=== PATIENT | male | born 1960 | race Caucasian/White ===

== ENCOUNTER 2018-06-20 09:34 | Inpatient (IN) | payer OTHER, SELFPAY ==
[2018-06-15 14:00] VITALS: BMI 25.0
[2018-06-20] VITALS (21 sets, daily range): BP systolic 89–169; BP diastolic 50–113; PULSE 48–73; RESP 12–20; TEMP 35.9–36.9; O2SAT 93–100; BMI 25.0
--- NOTE | 2018-06-20 | DI.RAD.S_ITS ---
PROCEDURE: XR LUMBAR SPINE 2-3V INDICATIONS: L5-S1 TLIF TECHNIQUE: 2 views of the lumbar spine were acquired. COMPARISON: None. FINDINGS: 2 intraoperative fluoroscopy images demonstrate discectomy and posterior fusion at L4-L5 and L5-S1. Pedicular screws and fusion rods are in appropriate position. IMPRESSION: Discectomy and posterior fusion at L4-L5 and L5-S1. Dictated by: Terell Raymond M.D. on 06/20/2018 at 15:51 Approved by: Terell Raymond M.D. on 06/20/2018 at 15:52
[2018-06-20] MEDS: LACTATED RINGERS 1,000 ML 42 ML IV ×2 (10:00→14:56)
[2018-06-20] MEDS: fentaNYL 100 MCG/2 ML INJ 50 MCG IV ×4 (11:04→12:14)
--- NOTE | 2018-06-20 11:48 | PM.PREOP ---
Pre-operative Note Interval Note History & Physical reviewed/Exam performed by Physician: Yes Changes to H&P: Yes H&P completed within 30 days and has changed as indicated here:: All of his left leg symptoms have resolved. Primarily just going down the posterolateral right leg although he still has some constant numbness into the right great toe. We will plan on a completely right-sided decompression and fusion at L5-S1 with possible revision decompression of the L4-5 foramen.
[2018-06-20] MEDS: CEFAZOLIN 2 GM/100 ML FROZ.PIGGY IV ×2 (12:32→21:07)
--- NOTE | 2018-06-20 13:20 | SUR.OPER ---
Prone on spine table, head in foam head support, padded chest and pelvic supports, gel pad at knees, lower legs supported by pillows; nipples, genitalia and toes free of pressure, arms secured on foam padded arm boards at <90 degrees abduction. Tape over blanket at thigh secured to table.
[2018-06-20] MEDS: BUPIVACAINE LIPOSOME 266 MG/20 ML VIAL INJ (13:36)
[2018-06-20] MEDS: SODIUM CHLORIDE 0.9% 1,000 ML, GENTAMICIN 80 MG IRR (13:37)
[2018-06-20] MEDS: BUPIVACAINE 0.5% (PF) VIAL 30 ML INJ (13:40)
[2018-06-20] MEDS: THROMBIN (RECOMBINANT) 5,000 UNIT VIAL 5000 UNIT TOP (13:41)
--- NOTE | 2018-06-20 14:59 | PM.OP.1 ---
Operative Date/Time/Diagnoses Date of procedure: 06/20/18 Time of procedure: 14:59 Pre-op diagnosis: Lumbar disc herniation with radiculopathy Lumbar stenosis History of lumbar fusion Post-op diagnosis: same Procedure & Clinicians Procedure: L5-S1 diskectomy on the right L5-S1 TLIF (post/post innerbody fusion) with cage L4-5 posterolateral fusion Removal of yevgeniy and L5 screw on the right Placement of L5 and S1 screws Iliac crest bone graft Use of microscope Same procedure as scheduled: Yes Indications: [age] year old male with intractable pain from lumbar disc herniation. They had failed conservative management and requested operative intervention. Risks and benefits of surgery were discussed and appropriate consents were obtained. Surgeon: Alex Nagel Payroll Benefits Administrator: Dorys Rojo Anesthesia Type: General Operative Notes Findings: None Closure Type: primary Specimen(s): none sent Prosthetic devices, grafts, tissues, transplants, or devices: NuVasive Precept MAS screws Globus Rise cage Applied: catheter Estimated Blood Loss (mL): 10 Procedure in detail: The patient was brought to the operating room and intubated on the table. A time-out was performed. They were then rolled over to the well-padded Mati table in the prone position. Preoperative antibiotics were given. The back was prepped and draped in the standard sterile fashion. Using fluoroscopy, a 6 cm longitudinal incision was made to the right of the midline incorporating his previous incision. We used Bovie to come down to and split the lumbodorsal fascia and then dissected down to his old L4 and L5 screws. These were cleared off. We removed the set screws and then removed the yevgeniy. The L5 screw was removed as it felt somewhat loose. Using fluoroscopy and monitoring, we then percutaneously placed Jamshidi needles down the pedicles of L5 and S1 on the right side. We changed our overall screw trajectory and went more medial on the L5 level than his previous screw. These were changed out to guidewires and then we tapped and then placed the NuVasive MAS Presept screw shanks. We then opened up the retractors and used Bovie to clear up the posterolateral gutter as well as medially along the lamina to the spinous processes. A bur was used to decorticate the transverse processes. We also explored the posterolateral fusion at L4-5. There did not appear to be any significant bone growth. We then decorticated the transverse process of L4 as well. We brought in the microscope. Using a combination of bur and Kerrison rongeurs, a L5-S1 hemilaminotomy was performed from the right side. We cleared over past the midline and carefully depressed the dura until we were able to decompress the opposite side. We cleared out the neural foramen. We then retracted the dura medially and came to the large extruded disc herniation that was seen on the MRI. A scalpel used to perform an annulotomy and removed the large extruded fragment that had worked up above the disc level itself. This completed the diskectomy at L5-S1. This was separate and distinct from the TLIF approach as we were decompressing a large extruded disc herniation. We then began the TLIF prep. A complete facetectomy was performed on this side at L5-S1. We carefully cleaned up the remainder of the foramen until we could easily retract the exiting root as well as clearing medially below the dura and expose the disc space. We performed a near complete diskectomy using a combination of paddles, poonam, pituitaries, and curettes. We distracted the disc using a paddle and locked the retractor in an open position. We then filled the disc space with Osteocel bone graft. We then placed the globus Rise cage under fluoroscopy and then filled this in with more bone graft. The distraction on the retractor was released to compress down. This completed the posterior interbody fusion portion of the TLIF at L5-S1. We then placed the screw heads, yevgeniy, and locked down the set screws from L4 through S1. The wound was copiously irrigated. A small stab incision was made over the PSIS. We used a Jamshidi needle to aspirate several mL of bone marrow from the pelvis. This was mixed with the remaining Osteocel and combined with all of the locally harvested bone graft and placed in the posterolateral gutter for the posterior fusion of the TLIF at L5-S1. We also placed more bone in the posterolateral gutter for the revision attempt at the posterolateral fusion at L4-5. We then closed the muscle fascia. We then went to the opposite side. Again using fluoroscopy, a 3 cm incision was made and Bovie was used to come down to split the fascia. Using neural monitoring and fluoroscopy, Jamshidi needles were advanced down the pedicles of L5 and S1 on the left side. These were switched over guidewires, tapped, and screws placed. We then placed a yevgeniy and locked the set screws on this side. The wound was irrigated. The fascia was closed. Exparel was used for local pain relief. Vancomycin powder was placed in the wounds. The superficial and skin were closed. A sterile dressing was placed. The patient was then rolled over extubated and brought to recovery room without complications. Complications: none Condition: stable Disposition: PACU Plan for aftercare: Inpatient. Up with physical therapy. Do to his significant IV drug history as well as current treatment with Suboxone, I presume that he is going to have issues with pain management for first few days. When he is discharged, he will need to be discharged with enough pain medication to last until Tuesday. That is his next follow-up with his pain management doctor, who will restart him on Suboxone and his regular scheduled medications at that point.
[2018-06-20] MEDS: LORazepam 2 MG/ML SYRINGE 0.5 MG IV ×3 (15:42→16:44)
[2018-06-20] MEDS: hydrOXYzine 50 MG/ML INJ IM (16:13)
[2018-06-20] MEDS: HYDROMORPHONE PCA (6MG/30ML) 6 MG/30 ML PCA.VIAL 2.5 MG IV ×2 (16:38→22:28)
--- NOTE | 2018-06-20 17:09 | SUR.PHASEI ---
PACU Note: Patient with increased pain level 9/10. Anesthesiologist Dr. Parker medicated patient intermittently with pain medication. PROGRAMMING MANAGER Dilaudid initiated in the PACU per request of Ortho PA. Vital signs remained stable. O2 sats on 4 liters DRIVEWAY ATTENDANT WNL. Verbal handoff report given to Paulette RIVERA in PACU and report called to Nida RIVERA in acute care. Patient resting quietly.
[2018-06-20] MEDS: LACTATED RINGERS 1,000 ML 125 ML IV (18:10)
[2018-06-20] MEDS: CELECOXIB 200 MG CAPSULE 400 MG PO (19:10)
[2018-06-20] MEDS: hydrOXYzine pamoate 25 MG CAPSULE PO (19:10)
[2018-06-20] MEDS: SENNOSIDES 8.6 MG TABLET 17.2 MG PO (20:54)
[2018-06-20] MEDS: DOCUSATE 100 MG CAPSULE PO (20:54)
[2018-06-20] MEDS: GABAPENTIN 300 MG CAPSULE PO (20:54)
--- NOTE | 2018-06-20 22:15 | PC.NURSE ---
pt up from pacu at 1720, sleeping when arrived. Pacu started pt on dil card setter at 0.4/10/10 w/cont 0.5. Pt woke up couple times this evening to answer admit questions and take po pills. Was confused at first when woke up, thought he still needed to have surgery but smiled when I told him that it was done. After a couple of hours patient woke up long enough to get educated on card setter use and ate some dinner. no moaning or grimacing with rest and no movement but with any movement awake or sleeping pt grimaces and moans loudly. at that time I remind him to push his card setter button. Pt has been calm and cooperative when awake. drsg to back has been cdi.
[2018-06-21] VITALS (8 sets, daily range): BP systolic 107–140; BP diastolic 75–96; PULSE 57–114; RESP 16–18; TEMP 36.6–37.2; O2SAT 91–97
--- NOTE | 2018-06-21 00:41 | PC.NURSE ---
Addendum entered by Jostin Vicente R.N. 06/21/18 02:58: 0200: Awake, disoriented for a few moments. Drinking water without difficulty. Re-oriented to place, time, and situation. 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 Drowsy when awake, answers questions and follows commands. Remains on O2 2L/NC with continuous pulse oximetry. O2 sats are 93%. Remains on PAINTING TECHNICIAN at 0.4/10/10 and basal rate of 0.5/hr. Midline IV in place in lt upper arm with LR infusing at 125cc/hr. Pt laying supine with HOB elevated 30 degrees.
[2018-06-21] MEDS: CEFAZOLIN 2 GM/100 ML FROZ.PIGGY IV (04:05)
[2018-06-21 05:18] LABS: Hematocrit 44.4 % (41-53); Hemoglobin 14.8 g/dL (13.5-17.5)
[2018-06-21] MEDS: HYDROMORPHONE PCA (6MG/30ML) 6 MG/30 ML PCA.VIAL 2.5 MG IV (05:45)
[2018-06-21] MEDS: LACTATED RINGERS 1,000 ML 125 ML IV (05:50)
--- NOTE | 2018-06-21 08:01 | P.PN_ITS ---
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 At this point pain is manageable and he is just lying in bed but very severe across the back when he tries to move. The leg symptoms have resolved Exam Vital Signs (past 8 hours): - 06/21/18 00:00 06/21/18 06:00 Temperature 98.3 F 98.3 F Pulse Rate 57 L 63 Respiratory Rate 16 16 Blood Pressure 132/89 136/89 Pulse Oximetry 96 94 Oxygen Delivery Method Nasal Cannula Oxygen Flow Rate 2 Const Orientation: alert and oriented x3 Back/Spine/Pelvis Other: Minimal drainage on dressing. 5/5 motor both lower extremities. Intact sensation throughout both lower extremities Objective Labs Result Diagrams: 06/21/18 05:05 Labs: Laboratory Results - last 24 hr 06/21/18 05:05 Hgb 14.8 Hct 44.4 Assessment & Plan Post-op Postoperative Procedures Operation Date: 06/20/18 11:45 Actual Procedures Side Surgeon p L5-S1 Discectomy & Instru. fusion w/bone graft. Revision L4-5 Left Laminectomy Alex Nagel MD He is doing better today in pain control. 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 Add a nicotine patch. Quality VTE Deep Vein Thrombosis/Pulmonary Embolism Present on Admission: No
[2018-06-21] MEDS: DOCUSATE 100 MG CAPSULE PO ×2 (08:27→20:53)
[2018-06-21] MEDS: OXYCODONE IR 5 MG TABLET 20 MG PO ×5 (08:27→20:54)
[2018-06-21] MEDS: CELECOXIB 200 MG CAPSULE PO ×2 (08:27→20:53)
[2018-06-21] MEDS: NICOTINE 14 PATCH 14 MG TOP (08:48)
--- NOTE | 2018-06-21 10:08 | PT.IIE ---
Current Diagnoses Spinal stenosis, lumbar region with neurogenic claudication (06/20/18) Strain of muscle, fascia and tendon at neck level, initial encounter (06/20/18) Surgery Performed Operation Date: 06/20/18 11:45 Actual Procedures p L5-S1 Discectomy & Instru. fusion w/bone graft. Revision L4-5 Left Laminectomy - Alex Nagel MD Surgical History (Last Updated 06/15/18 @ 14:30 by Evette Merino, RN) History of lumbar fusion (Acute ~2014) History of repair of anterior cruciate ligament of right knee (Acute) History of vasectomy (Acute ~04/2014) Hx of tonsillectomy (Acute) S/P surgery on nasal septum (Acute) Medical History (Last Updated 06/15/18 @ 14:34 by Evette Merino RN) HTN (hypertension) (Acute) Hepatitis C (Acute ~2002) Palpitations (Acute) Substance abuse (Acute) [place] teeth removed (Acute) Physical Therapy Inpatient Evaluation/Re-Eval M1 PT/OT-IP Prior Functional Status Start: 06/21/18 11:41 Freq: NEEDED Status: Active Protocol: Document 06/21/18 10:08 AB (Rec: 06/21/18 11:55 AB [email or web address]) Medical Review Prior Functional Status Medical History Reviewed Yes Communication able to make needs known Mobility and Gait pt staed that he is independent with all mobilities and ambulation without AD Social History Household Members friend(s) Living Arrangements House Number of Floors (Floors) One Floor Number of Stairs To Enter/Railing? 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 M2 PT-IP Current Condition Start: 06/21/18 11:41 Freq: NEEDED Status: Active Protocol: Document 06/21/18 10:08 AB (Rec: 06/21/18 11:55 AB [email or web address]) Physical Therapy Current Condition Current Condition Evaluation Date 06/21/18 Treatment Diagnosis s/p L4-5 post/lat fusion, L5S1 TLIF with cage; difficulty in walking Onset Date 02/12/19 Precautions Lumbar Precautions Log Roll No Twisting Limit Bending Lifting Restriction of 10 lbs Gait Belt above Incisional Area M3 PT-IP Subjective Start: 06/21/18 11:41 Freq: NEEDED Status: Active Protocol: Document 06/21/18 10:08 AB (Rec: 06/21/18 11:55 AB [email or web address]) Subjective Physical Therapy Visit Type Type Initial Evaluation Visit Start Time 10:08 Visit Stop Time 10:55 Total Visit Minutes 47 Number of ATTENDANT SALES Visits 0 Physical Therapy Visit Comments Patient Comments pt agreeable to do PT Therapy Pain Assessment Pain When Pain Assessed At Rest Pain Present Pain Present Pain Reported Location Lower back Intensity 8 Scale Used Numeric (1 - 10) Pain Management Techniques Apply Cold Re-positioning Timing of Activity with Medications M4 PT-IP Mobility and Gait Start: 06/21/18 11:41 Freq: NEEDED Status: Active Protocol: Document 06/21/18 10:08 AB (Rec: 06/21/18 11:55 AB [email or web address]) PT-Bed Mobility Assessment Rolling Type of Rolling Log Rolling Level of Assist Standby Assistance Supine to Sit Supine to Sit Standby Assistance Bedrails Scooting Scooting to Edge of Bed Standby Assistance PT-Transfer Assessment Sit to and From Stand Sit to and from Stand Minimal Assistance 1 Person Assistance Equipment Transfer Assistive Device Gait Belt Front Wheeled Walker Orthotic/Prosthetic Devices or Brace: No Gait Assessment Gait Gait Assistance Required: Contact Guard Assist Distance (Feet) 35 Able to Maintain Weight Bearing Status Yes During Gait Assistive Devices Assistive Device Gait Belt Front Wheeled Walker Orthotic/Prosthetic Devices or Brace: No Gait Deviations General Gait Pattern Antalgic Decreased Stride Length Decreased Feet Clearance Factors Limiting Gait Function Factors Limiting Gait Function Decreased Activity Tolerance Decreased Sensation Decreased Strength Limited Range of Motion Pain Poor Balance Comments Gait Comments pt ambulated in room using FWW ~ 35 ft SBA to CGA. pt agreed to sit up on chair afterwards. positioned on chair. ice pack provided. call light and table placed within reach. PT-Balance Assessment Sitting Balance and Reactions Static Sitting Balance Ability Good Dynamic Sitting Balance Ability Good Standing Balance and Reactions Static Standing Balance Ability Fair Dynamic Standing Balance Ability Fair Device Used FWW M5 PT-IP Objective Assessments Start: 06/21/18 11:41 Freq: NEEDED Status: Active Protocol: Document 06/21/18 10:08 AB (Rec: 06/21/18 11:55 AB [email or web address]) Orientation Orientation/Cognition Level of Alertness Alert Orientation Name Age Birthday Month Date Year Day of Week Place Situation Gross Range of Motion Lower Extremity ROM Assessment Within Functional Limits Strength Lower Extremity Strength Assessment Bilaterally Impaired Comments Strength Comments RLE: 3+/5 LLE: 4-/5 Coordination Assessment Gross Coordination Gross Coordination WNL Sensation Assessment Sensation Gross Sensation Right LE Impaired Sensation Description Numbness Comments Sensation Comments c/o numbness on R 1st and 2nd toes. Muscle Tone Muscle Tone WNL Yes M6 PT-IP Treatment Start: 06/21/18 11:41 Freq: NEEDED Status: Active Protocol: Document 06/21/18 10:08 AB (Rec: 06/21/18 11:55 AB [email or web address]) Physical Therapy Treatment Education Education Provided Precautions Weight Bearing Status Post-Op Packet Safety M7 PT-IP Assessment and Plan Start: 06/21/18 11:41 Freq: NEEDED Status: Active Protocol: Document 06/21/18 10:08 AB (Rec: 06/21/18 11:55 AB [email or web address]) PT Summary Assessment and Plan Potential Rehabilitation Potential Good Status of Condition at Evaluation Evolving Summary Impairments Pain ROM Strength Balance Coordination Sensation Tone Cognition Bed Mobility Transfers Gait Activity Tolerance Assessment Summary pt requiring CGA to min A with mobility and plans to go home with his roommate to assist him. pt will likely improve during hospital stay. stair climbing training needs to be completed prior d/c and if able to safely complete, may go home when medically stable. Goals Bed Mobility Goal Independent Transfer Goal Standby Assistance Front Wheeled Walker Gait Goal Standby Assistance Front Wheel Walker Gait Distance 150 Other Goals up/down 4 steps with R rails ascending + 2 steps withour rails using SPC/FWW SBA Days to Meet Goals 5 Frequency of Treatment Frequency Of Treatment Twice a Day Treatment Plan Physical Therapy Treatment Plan Bed Mobility Training Transfer Training Gait Training Therapeutic Exercise Balance Retraining Post Op Education Discharge Planning Hot or Cold Pack Neuromuscular Re-ed Coordination Retraining Manual Therapy Other Recommendations and Next Treatment ambulation, stair climbing if Focus appropriate Recommendations To Nursing Amount of Assist Needed 1 Person Assist Discharge Recommendations PT Discharge Recommendations Home with Assistance
--- NOTE | 2018-06-21 11:48 | CM.DANOTE ---
Patient is a 58 year old male who was admitted on 06/20/18 for Spinal Surgery. Pt has L&I for insurance and his PCP is Dr. Marino Tracey. EMR was reviewed. Per Ortho PA, pt tolerated procedure well and having some pain control issues due to pt's hx of opioid/heroin abuse. Per RN, pt alert and oriented and pleasant and cooperative with care. Per PT, pt ambulated in the room and sitting upright in bedside chair. SW met bedside with pt and explained role and updated white board and pt confirmed that he lives at home in [facility] with his roommate/ex- who plans to be available for assist for at least the first 2 weeks after discharge. Pt denies any DPOA and declined pwk at this time. Pt states that he is typically Independent at baseline with ADL's and has been able to hold a couple jobs over the past few years but only for 6-9 months at a time due to his back injury. Pt states that about 5 years ago he had his first L4-5 surgery and was able to d/c home with outpt PT but this is when his opioid addiction began. Pt was able to quit using pain medication for a while but then unfortunately made the terrible, terrible decision to use heroin in place of the pain medication and has struggled with heroin abuse for a couple years but 3 weeks ago he established care with his MD who prescribes his Suboxone which he feels has been a peter factor to his 3 weeks of sobriety from heroin. Pt also sees a SW in the clinic for ongoing support and is not currently connected with any other treatment facilities or supports. Pt seems quite motivated with his recovery, sobriety, and healing from surgery and states he has the supports with his ex- and local friends and declines further resources at this time. Pt states he has a plan for minimal prescription of pain medication with the Orthopedic office and then a scheduled appointment with his Suboxone Clinic for early this next week for ongoing management. Pt denies any hx of HH or SNF and does not anticipate any needs at d/c and preference is home with his roommate support at discharge. Pt has a plan of either paying an Uber for transport home unless the roads are clear of snow and his roommate can pick him up. Plan: DCP to follow closely after further PT/OT and recommendations towards determining if pt is safe for d/c home with roommate/ex- assist for at least 2 weeks and any further identified discharge planning needs. KP Gallardo Discharge Planning/Care Management CM Discharge Assessment Start: 06/21/18 11:45 Freq: Status: Active Protocol: Document 06/21/18 11:45 BF (Rec: 06/21/18 11:47 BF [id number]) Discharge Planning Assessment Assigned Painter And Decorator Apprentice PABLO Ovalles DPOA/Assigned Designee Name none Advance Directives? No: Declines further information History Provided By Patient Medical Record Has Patient been admitted in last 30 No days? Prior Living Arrangements House Household Members friend(s) other Comment Lives at home in [facility] with his roommate/ex- Type of transporation used prior to Drives own vehicle admit Independent with ADL's Yes Is patient alert and oriented? Yes Caregiver for Another No Community Services used prior to Physical Therapy admission: Comment Waiting for further PT eval and recommendations towards likely home Barriers to Discharge No Discharge Plan Home Community Services Physical Therapy Transportation Arrangement Pt plans to likely pay for an Uber to shrimp picker his ex- to come to the hospital to pick him up for transport back home unless the roads are clear of snow. Additional Comment Waiting for further PT/OT Whiteboard Updated in Patient Room with Yes name and ext. # of Painter And Decorator Apprentice Review Status In Process Please Provide Date Initial DC 06/21/18 Assessment Was Performed Next Review Type Continued Stay Review Pre-Anesthesia Assessment Start: 06/15/18 14:00 Freq: Status: Complete Protocol: Document 06/15/18 14:00 CAB (Rec: 06/15/18 14:38 CAB [id number]) Pre-Anesthesia Assessment PAC Comment Hx of substance abuse, currently followed by avionics systems integration specialist, on suboxone therapy. Patient Also Known As (AKA) Ray or Solomon Patient Information Reviewed Via Phone Assessment Assessment Completed With Patient Primary Care Provider Marino Tracey Seen Specialist in Last 12 Months Yes Specialist Seen Orthopedist Other Comment Addiction physician - Dr. Jameel romero/[facility] in [place] Primary Language Irish Straight Pin Making Machine Operator Required No Height 185.42 cm Weight 86.183 kg Body Mass Index (BMI) 25.0 Hearing Ability Normal Visual Assist None Magnifying Glass Dentition Type Teeth, Natural Present Teeth, Missing Barriers to Learning None Other Aids No Hx Anesthesia Reactions No: Sleep apnea, does not use CPAP Hx Family Anesthesia Reaction No Hx Malignant Hyperthermia No Hx Blood Transfusions No Anesthesia Review Requested No Buttonhole Facer No alcohol intake current alcohol intake frequency a few times a month Smoking Status Current every day smoker Tobacco type cigarettes Smoking packs per day 1 Substance Use Type marijuana Comment Advised not to smoke 24 hours prior to surgery Pain Present Pain Reported Musculoskeletal Symptoms Abnormal Gait Back Pain Difficulty Walking Joint Pain History of Falling (Recent or History of No ) Patient is completely paralyzed or No completely immobile Mental Status Oriented to own ability Is patient on oxygen? No Does patient have BRAVO/SOB No Hx Sleep Apnea Yes CPAP/BIPAP use prescribed not used Currently Taking a Beta Tristen No Can You Climb a Flight of Stairs Without Yes SOB Hx Chest Pain No Hx SOB No Hx Syncope or Dizziness No Anti-Coagulant Therapy No Has a Chief Console Operator No Cardiac Testing No Hx Pacemaker/ICD No Pacemaker Rep Required? No Cardiac Clearance Received Not Applicable Diet Type At Home Regular dysphagia No Urinary Catheter Present No Hx Urinary Self Catheterization No Diabetes No Hx Drug Resistant Organism No Presence of External or Internal Medical No Devices Have you traveled outside the [facility] in the last 30 days? Marital Status Lives With friend(s) other Prior Living Arrangements House Number of Floors (Floors) One Floor Number of Stairs To Enter/Railing? 6 steps, railing present Support System Friend(s) Does the Patient Have Assistance After Yes Surgery Patient Discharge Plan Description Return Home Comment Lives w/ex-, who will assist with care at discarge Feels Safe in Current Environment Yes Been Physically Hurt or Threatened By a No Person in Current Environment Do you have thoughts of harming yourself None or others? Are you currently considering suicide? No Do you have a plan to hurt yourself or No Plan others? Do You Have Any Spiritual Beliefs That No May Affect Your HC Choices? Do You Have Any Cultural Practices That No May Affect Your HC Choices? Spiritual Referral None Who Can We Speak to About Patient's Care Family, friends Identifying Code for Release of Patient Declines to issue Information Health Care Proxy/Next of Kin Eliazar Sanchez (brother) Health Care Proxy Emergency Contact Name Eliazar Bradford (brother) Emergency Contact Advance Directives? No: Declines further information Power of Chemical Equipment Repairer No PAC Instructions Do not shave/clip surgical site Durable medical equipment Medications to take/avoid Nasal antibiotic No ETOH/petroleum product on skin DOS NPO Post-op transportation Pre-surgical wash Sturdy shoes/comfortable clothes Do not bring valuables and remove jewelry
--- NOTE | 2018-06-21 11:50 | OT.IP.EVAL ---
Current Diagnoses Spinal stenosis, lumbar region with neurogenic claudication (06/20/18) Strain of muscle, fascia and tendon at neck level, initial encounter (06/20/18) Surgery Performed Operation Date: 06/20/18 11:45 Actual Procedures p L5-S1 Discectomy & Instru. fusion w/bone graft. Revision L4-5 Left Laminectomy - Alex Nagel MD Past Medical History (Last Updated 06/15/18 @ 14:34 by Evette Merino, RN) HTN (hypertension) (Acute) Hepatitis C (Acute ~2002) Palpitations (Acute) Substance abuse (Acute) [place] teeth removed (Acute) Surgical History (Last Updated 06/15/18 @ 14:30 by Evette Merino RN) History of lumbar fusion (Acute ~2014) History of repair of anterior cruciate ligament of right knee (Acute) History of vasectomy (Acute ~04/2014) Hx of tonsillectomy (Acute) S/P surgery on nasal septum (Acute) Occupational Therapy Inpatient Evaluation/Re-Eval M1 PT/OT-IP Prior Functional Status Start: 06/21/18 11:41 Freq: NEEDED Status: Active Protocol: Document 06/21/18 11:50 PJM (Rec: 06/22/18 08:13 PJM [id number]) Medical Review Prior Functional Status Medical History Reviewed Yes Communication WNL Mobility and Gait Pt stated that he is independent with all mobilities and ambulation without AD. Activities of Daily Living and IADL's Pt states he was indep with all self care, He shares IADLs with his roommate. 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 He states he stopped working 04/21/19 due to low back pain. He plans to take 3 months of work. Social History Household Members friend(s) other Living Arrangements House Number of Floors (Floors) One Floor Number of Stairs To Enter/Railing? 6 stairs to enter with 2 railings Home Environment Tub/Shower Home Equipment Raised Toilet Seat Without Armrests Shower Seat without Backrest Hand Held Shower Additional Social History Comment Pt lives with roommate who works from home and can assist PRN. Pt has hx of recent IV drug use. Currently has STUNT PERSON in place plus oral pain meds being given. M2 OT-IP Current Condition Start: 06/22/18 07:57 Freq: Status: Active Protocol: Document 06/21/18 11:50 PJM (Rec: 06/22/18 08:13 PJ [id number]) Occupational Therapy Current Condition Current Condition Evaluation Date 06/21/18 Treatment Diagnosis decr'd self care,mobility s/sp L5-S1 diskectomy/fusion w/ revision L4-5 lami Diagnosis Onset Date 06/20/18 Post Operative Precautions Lumbar Precautions Log Roll No Twisting Limit Bending Lifting Restriction of 10 lbs Gait Belt above Incisional Area M3 OT- IP Subjective and Pain Start: 06/22/18 07:57 Freq: Status: Active Protocol: Document 06/21/18 11:50 PJM (Rec: 06/22/18 08:13 PJ [id number]) OT- Subjective Occupational Therapy Visit Type Type Initial Evaluation Visit Start Time 11:30 Visit Stop Time 11:50 Total Visit Minutes 20 Occupational Therapy Visit Comments Patient Comments I know I am sleepy from the pain meds. Sorry about that. Patient/Caregiver Goals to have less back pain, be able to return to work in 3 months OT Pain Assessment Pain Present Pain Present Pain Reported Location Right Upper Leg Intensity 8 Scale Used Numeric (1 - 10) Description Aching Acute Pain Behaviors Facial Grimacing Guarding Management Techniques Distraction Timing of Activity with Medications M4 OT- IP ADL's Start: 06/22/18 07:57 Freq: Status: Active Protocol: Document 06/21/18 11:50 PJM (Rec: 06/22/18 08:13 PJ [id number]) OT [id number] General Evaluation Self-Feeding Ability Independent OT ADL-Grooming General Evaluation Grooming Ability Standby Assistance Comments OT Grooming Comments after set up in chair OT ADL-Oral Care Comments Oral Care Comments to be assessed OT ADL-Dressing General Eval Upper Body Dressing Ability Standby Assistance Lower Body Dressing Ability Maximum Assistance Comments OT Dressing Comments Pt too drowsy to begin education re: self care skills today OT ADL-Toileting Comments OT Toileting Comments to be assessed OT ADL-Bathing Comments OT Bathing Comments to be assessed, recommend clamp on tub grab bar to assist with stepping over edge of tub or suction grab bar. Pt lives in rental house and cannot have permanent grab bars placed. M5 OT- IP IADL's Start: 06/22/18 07:57 Freq: Status: Active Protocol: Document 06/21/18 11:50 PJM (Rec: 06/22/18 08:13 PJM [id number]) OT-Instrumental Activities of Daily Living Deficits IADL Deficits Identified Deficits Home Safety Awareness Awareness of Need for Assistance at Home Good Awareness Ability to Problem Solve Emergency Able to Problem Solve Situations Medication Management Medication Management Comments Pt has hx of recent IV drug use per chart notes. Money Management Money Management No Deficits Identified Meal Preparation Meal Preparation Caregiver Provides Assist Meal Preparation Comments Roommate to assist until pt able Velvet Steamer Velvet Steamer Caregiver Provides Assist Velvet Steamer Comments Roommate to assist until pt able Driving Driving Caregiver Provides Assist Driving Comments Roommate to assist until pt able M6 OT- IP Functional Cognition Start: 06/22/18 07:57 Freq: Status: Active Protocol: Document 06/21/18 11:50 PJM (Rec: 06/22/18 08:13 PJ [id number]) Cognitive Factors Limiting Selfcare Function Cognitive Ability Level of Alertness Drowsy Patient Orientation Name Place Situation Attention Span Ability Unable to Sustain Attention Ability to Follow Commands Able to Follow One Step Commands Cognitive Comments Cognitive Assessment Comments Pt quite drowsy from pain meds but oriented and asking appropriate questions. OT- Vision and Hearing OT- Hearing Assessment OT- Hearing Assessment WFL OT- Vision Assessment Visual Acuity WFL M7 OT- IP Mobility and Balance Start: 06/22/18 07:57 Freq: Status: Active Protocol: Document 06/21/18 11:50 PJM (Rec: 06/22/18 08:13 PJM [id number]) OT-Transfer Assessment Comments Mobility Comments Pt seen up in chair this session. See P.T. notes. OT- Gait Assessment Comments Gait Ability Comments See P.T. notes OT- Balance Assessment Comments Other Balance Tests/Deviations/Treatment see P.T. notes : M8 OT- IP Objective Assessments Start: 06/22/18 07:57 Freq: Status: Active Protocol: Document 06/21/18 11:50 PJM (Rec: 06/22/18 08:13 PJM [id number]) OT Gross Range of Motion Upper Extremity Range of Motion Assessment Within Functional Limits OT Strength Upper Extremity Strength Assessment Within Functional Limits OT- Coordination Assessment Comments Coordination Comments BUE WNL OT-Muscle Tone Assessment Muscle Tone WNL Yes OT Sensation Assessment Comments Summary Comments Pt denies deficits in BUE's Edema Edema Absent M9 OT- IP Assessment and Plan Start: 06/22/18 07:57 Freq: Status: Active Protocol: Document 06/21/18 11:50 PJM (Rec: 06/22/18 08:13 PJM [id number]) OT Summary Assessment and Plan Potential Rehabilitation Potential Good Analytic Complexity at Evaluation Low Summary OT Impairments Pain Functional Mobility Grooming Dressing Toileting Bathing Toilet Transfers Shower Transfers Assessment Summary Low complexity OT assessment completed with emphasis on adapted ADL skills within lumbar spine precautions. Pt too drowsy to retain any education today but motivated to increase independence and return home. Pt currently has performance deficits in all functional mobility/transfers, standing grooming, lower body dressing, bathing and toileting. Pt will benefit from 1-2 additional OT visits here to address the goals below. Anticipate pt will be able to d/c home with roommate , who works from home, when medically stable and clears P.T. Goals Grooming Goal Independent Dressing Goal Independent Long Handled Shoe Horn Banking Analyst Sock Aid Toileting Goal Independent Bathing Goal Standby Assistance Toilet Transfer Goal Independent Shower Transfer Goal Standby Assistance Tub/Shower Combination Shower Chair Patient/Caregiver Education Goal Demonstrate Post-Op Precautions Demonstrate Energy Conservation and Pacing Caregiver Independent Assisting Patient Days to Meet Goals 2 Frequency of Treatment Frequency Of Treatment Once a Day Treatment Plan OT Treatment Plan ADL Training Functional Mobility Patient/Family Education Discharge Planning Discharge Recommendations OT Discharge Recommendations Home with Assistance Home Equipment Needs grab bar by tub
--- NOTE | 2018-06-21 13:54 | PT.IPTN ---
Current Diagnoses Spinal stenosis, lumbar region with neurogenic claudication (06/20/18) Strain of muscle, fascia and tendon at neck level, initial encounter (06/20/18) Surgery Performed Operation Date: 06/20/18 11:45 Actual Procedures p L5-S1 Discectomy & Instru. fusion w/bone graft. Revision L4-5 Left Laminectomy - Alex Nagel MD Physical Therapy Treatment Note M2 PT-IP Current Condition Start: 06/21/18 11:41 Freq: NEEDED Status: Active Protocol: Document 06/21/18 10:08 AB (Rec: 06/21/18 11:55 AB [email or web address]) Physical Therapy Current Condition Current Condition Evaluation Date 06/21/18 Treatment Diagnosis s/p L4-5 post/lat fusion, L5S1 TLIF with cage; difficulty in walking Onset Date 06/20/18 Precautions Lumbar Precautions Log Roll No Twisting Limit Bending Lifting Restriction of 10 lbs Gait Belt above Incisional Area M3 PT-IP Subjective Start: 06/21/18 11:41 Freq: NEEDED Status: Active Protocol: Document 06/21/18 13:54 AB (Rec: 06/21/18 14:39 AB [email or web address]) Subjective Physical Therapy Visit Type Type Treatment Note Visit Start Time 13:54 Visit Stop Time 14:18 Total Visit Minutes 24 Number of GLAZE SPRAYER Visits 0 Physical Therapy Visit Comments Patient Comments pt agreeable to do PT Therapy Pain Assessment Pain When Pain Assessed At Rest Pain Present Pain Present Pain Reported Location Lower back Scale Used not too bad at rest per pt but increases with mobility Pain Management Techniques Re-positioning Timing of Activity with Medications M4 PT-IP Mobility and Gait Start: 06/21/18 11:41 Freq: NEEDED Status: Active Protocol: Document 06/21/18 13:54 AB (Rec: 06/21/18 14:39 AB [id number]) PT-Bed Mobility Assessment Rolling Type of Rolling Log Rolling Level of Assist Standby Assistance Sit to Supine Sit to Supine Standby Assistance PT-Transfer Assessment Sit to and From Stand Sit to and from Stand Contact Guard Assistance Equipment Transfer Assistive Device Gait Belt Front Wheeled Walker Orthotic/Prosthetic Devices or Brace: No Gait Assessment Gait Gait Assistance Required: Contact Guard Assist Minimum Assistance Distance (Feet) 35 Able to Maintain Weight Bearing Status Yes During Gait Assistive Devices Assistive Device Gait Belt Front Wheeled Walker Orthotic/Prosthetic Devices or Brace: No Gait Deviations General Gait Pattern Antalgic Factors Limiting Gait Function Factors Limiting Gait Function Decreased Activity Tolerance Decreased Sensation Decreased Strength Limited Range of Motion Pain Poor Balance Poor Safety Awareness Comments Gait Comments pt is drowsy this afternoon and requires constant cues to keep his eyes open. pt completed ambulation ~ 35 ft using FWW CGA to min A. pt more unsteady this afternoon. M5 PT-IP Objective Assessments Start: 06/21/18 11:41 Freq: NEEDED Status: Active Protocol: Document 06/21/18 10:08 AB (Rec: 06/21/18 11:55 AB [email or web address]) Orientation Orientation/Cognition Level of Alertness Alert Orientation Name Age Birthday Month Date Year Day of Week Place Situation Gross Range of Motion Lower Extremity ROM Assessment Within Functional Limits Strength Lower Extremity Strength Assessment Bilaterally Impaired Comments Strength Comments RLE: 3+/5 LLE: 4-/5 Coordination Assessment Gross Coordination Gross Coordination WNL Sensation Assessment Sensation Gross Sensation Right LE Impaired Sensation Description Numbness Comments Sensation Comments c/o numbness on R 1st and 2nd toes. Muscle Tone Muscle Tone WNL Yes M6 PT-IP Treatment Start: 06/21/18 11:41 Freq: NEEDED Status: Active Protocol: Document 06/21/18 13:54 AB (Rec: 06/21/18 14:39 AB [email or web address]) Physical Therapy Treatment Education Education Provided Precautions Safety M7 PT-IP Assessment and Plan Start: 06/21/18 11:41 Freq: NEEDED Status: Active Protocol: Document 06/21/18 13:54 AB (Rec: 06/21/18 14:39 AB [email or web address]) PT Summary Assessment and Plan Potential Rehabilitation Potential Fair Summary Impairments Pain ROM Strength Balance Coordination Sensation Tone Cognition Bed Mobility Transfers Gait Activity Tolerance Progress Towards Goals Slow Progress due to Pain Assessment Summary pt requiring one person assist with mobility. informed pt regarding caregiver training and set up for tomorrow at ~ 900 am. if caregiver will be able to safely assist pt and pt also able to complete stair climbing safely, pt may go home with assistance. Goals Bed Mobility Goal Independent Transfer Goal Standby Assistance Front Wheeled Walker Gait Goal Standby Assistance Front Wheel Walker Gait Distance 150 Other Goals up/down 4 steps with R rails ascending + 2 steps withour rails using SPC/FWW SBA Days to Meet Goals 5 Frequency of Treatment Frequency Of Treatment Twice a Day Treatment Plan Physical Therapy Treatment Plan Bed Mobility Training Transfer Training Gait Training Therapeutic Exercise Balance Retraining Post Op Education Discharge Planning Hot or Cold Pack Neuromuscular Re-ed Coordination Retraining Manual Therapy Other Recommendations and Next Treatment ambulation, stair climbing if Focus appropriate Recommendations To Nursing Amount of Assist Needed 1 Person Assist Discharge Recommendations PT Discharge Recommendations Home with Assistance
[2018-06-21] MEDS: HYDROMORPHONE PCA (6MG/30ML) 6 MG/30 ML PCA.VIAL 1 MG IV ×2 (14:29→21:15)
[2018-06-21] MEDS: SENNOSIDES 8.6 MG TABLET 17.2 MG PO (20:53)
[2018-06-21] MEDS: GABAPENTIN 300 MG CAPSULE PO (20:53)
--- NOTE | 2018-06-21 22:20 | PC.NURSE ---
pt alert and oriented X3. pain controlled with oxycodone Q3hr and DIRECTOR SHIP pt reported being comfortable and slept after; pt consistently rated pain 8/10, re-positioned patient for comfort; pt asked for snacks and juice throughout the shift.
--- NOTE | 2018-06-21 22:29 | PC.NURSE ---
Pt A&OX3, 93%RA. LS:clear. no n/v. pain rate 12/16, pain controlled w/20 mg oxycodone and ATHLETICS DIRECTOR. repositioned pt for comfort. at this pt is sleeping and comfortable. call light in reach. bed alarm active. pt urinate 325cc. call light in reach. bed alarm active.
[2018-06-22] VITALS: BP 120/75; PULSE 88; RESP 16; TEMP 36.7; O2SAT 92
[2018-06-22] MEDS: OXYCODONE IR 5 MG TABLET 20 MG PO ×5 (03:09→19:20)
[2018-06-22 04:00] VITALS: BP 115/80; PULSE 69; RESP 18; TEMP 36.8; O2SAT 93
--- NOTE | 2018-06-22 05:15 | PC.NURSE ---
Head Of Partner Development Note: 0010: Awake, watching TV, resting in bed. Vital signs stable. Midline IV in place in lt upper arm with NS infusing at 21cc/hr for FELT COVERER. FELT COVERER in line, with Dilaudid set at 0.3/10/8 and basal rate of 0.2mg/hr. Nicotine patch in place on lt shoulder. Pt remains on O2 1.5L/NC.
[2018-06-22] MEDS: HYDROMORPHONE PCA (6MG/30ML) 6 MG/30 ML PCA.VIAL 1 MG IV (05:46)
[2018-06-22 07:29] VITALS: BP 124/84; PULSE 64; RESP 18; TEMP 36.5; O2SAT 94
--- NOTE | 2018-06-22 08:14 | P.PN_ITS ---
Subjective Date Patient Seen: 06/22/18 Time Patient Seen: 08:12 Interval history: His pain levels are slowly improving. No leg symptoms. Exam Vital Signs (past 8 hours): - 06/22/18 04:00 06/22/18 07:29 Temperature 98.2 F 97.7 F Pulse Rate 69 64 Respiratory Rate 18 18 Blood Pressure 115/80 124/84 Pulse Oximetry 93 94 Fraction of Inspired Oxygen 21 Oxygen Delivery Method Nasal Cannula Oxygen Flow Rate 1.5 Const Orientation: alert and oriented x3 Back/Spine/Pelvis Other: Minimal drainage. 5/5 motor both lower extremities Objective Labs Result Diagrams: 06/21/18 05:05 Assessment & Plan Post-op Postoperative Procedures Operation Date: 06/20/18 11:45 Actual Procedures Side Surgeon p L5-S1 Discectomy & Instru. fusion w/bone graft. Revision L4-5 Left Laminectomy Alex Nagel MD He is making progress. Will continue working on pain control and stop the basal rate on the JALOUSIE INSTALLER and try to transition to orals. He still can have the JALOUSIE INSTALLER for breakthrough pain and stop this tomorrow. Possibly discharge home tomorrow. On discharge, he will need a knife oral pain medication to get him through to Tuesday when he goes back to his pain management doctor and will restart his Suboxone. Quality VTE Deep Vein Thrombosis/Pulmonary Embolism Present on Admission: No
[2018-06-22] MEDS: DOCUSATE 100 MG CAPSULE PO ×2 (09:07→20:53)
[2018-06-22] MEDS: NICOTINE 14 PATCH 14 MG TOP (09:07)
[2018-06-22] MEDS: CELECOXIB 200 MG CAPSULE PO ×2 (09:07→20:53)
--- NOTE | 2018-06-22 10:08 | OT.IP.TRT ---
Current Diagnoses Spinal stenosis, lumbar region with neurogenic claudication (06/20/18) Strain of muscle, fascia and tendon at neck level, initial encounter (06/20/18) Surgery Performed Operation Date: 06/20/18 11:45 Actual Procedures p L5-S1 Discectomy & Instru. fusion w/bone graft. Revision L4-5 Left Laminectomy - Alex Nagel MD Occupational Therapy Treatment Note M2 OT-IP Current Condition Start: 06/22/18 07:57 Freq: Status: Active Protocol: Document 06/21/18 11:50 PJM (Rec: 06/22/18 08:13 PJM [id number]) Occupational Therapy Current Condition Current Condition Evaluation Date 06/21/18 Treatment Diagnosis decr'd self care,mobility s/sp L5-S1 diskectomy/fusion w/ revision L4-5 lami Diagnosis Onset Date 06/20/18 Post Operative Precautions Lumbar Precautions Log Roll No Twisting Limit Bending Lifting Restriction of 10 lbs Gait Belt above Incisional Area M3 OT- IP Subjective and Pain Start: 06/22/18 07:57 Freq: Status: Active Protocol: Document 06/22/18 10:08 PJM (Rec: 06/22/18 12:48 PJM [email or web address]) OT- Subjective Occupational Therapy Visit Type Type Treatment Note Visit Start Time 09:39 Visit Stop Time 10:08 Total Visit Minutes 29 Notes Pt's roommate, Maisha, here for education. Occupational Therapy Visit Comments Patient Comments I feel much better today, I was so sleepy yesterday. Patient/Caregiver Goals to go home tomorrow;return to work in 3 months OT Pain Assessment Pain When Pain Assessed After Treatment Pain Present Pain Present Pain Reported Location Right Upper Leg Intensity 7 Scale Used Numeric (1 - 10) Description Aching Acute Pain Behaviors Guarding Management Techniques Distraction Re-positioning Timing of Activity with Medications M4 OT- IP ADL's Start: 06/22/18 07:57 Freq: Status: Active Protocol: Document 06/22/18 10:08 PJM (Rec: 06/22/18 12:48 PJM [email or web address]) OT ADL-Grooming Comments OT Grooming Comments provided education re: body mechanics and pt verbalizes understanding; he plans to shave in shower OT ADL-Oral Care Comments Oral Care Comments provided education re: body mechanics and pt verbalizes understanding; pt declines to go to sink at this time OT ADL-Dressing General Eval Upper Body Dressing Ability Standby Assistance Lower Body Dressing Ability Maximum Assistance Areas Needing Assistance Pull-Over Shirt Underpants/Brief Pants/Shorts Socks Assistive Devices Dressing Assistive Devices Printing Plate Setter Comments OT Dressing Comments Pt prefers to have roommate assist with donning and doffing B socks and with donning and doffing undershorts and sweatpants. He declines to try this task with unit manager rn. He declines sock aid. Roommate will assist with these tasks at home. Pt plans to wear slip on slippers and declines long shoe horn. Pt requesting unit manager rn for use at home to get objects off floor. OT ADL-Toileting General Evaluation Toileting Ability Independent Comments OT Toileting Comments Pt stood at toielt with P.T. earlier and declines up to bathroom at this time. Provided education re: body mechanics for twin care after bowel movement and pt verbalizes understanding. OT ADL-Bathing Devices Bathing Equipment Hand Held Shower Sprayer Shower Chair without Arms Comments OT Bathing Comments Pt would like to shower tomorrow prior to d/c, long bath sponge provided at pt request. Pt has small tub seat . Recommended clamp on tub rail but pt declines. Roommate M6 OT- IP Functional Cognition Start: 06/22/18 07:57 Freq: Status: Active Protocol: Document 06/22/18 10:08 PJM (Rec: 06/22/18 12:48 [facility] [email or web address]) Cognitive Factors Limiting Selfcare Function Cognitive Ability Level of Alertness Alert Patient Orientation Name Age Birthday Month Date Year Day of Week Place Situation Attention Span Ability Capable of Focused Attention Capable of Sustained Attention Ability to Follow Commands Able to Follow One Step Commands Memory Description No Deficits Noted Safety Awareness Decreased Ability to Apply Precautions Underestimates Need for Assistance Cognitive Comments Cognitive Assessment Comments Pt presents with decreased insight into current lumbar spine precautions and potential safety issues (e.g standing up to don and doff pants rather than sitting) and needs min to mod verbal cues to apply them during self care tasks. He needs encouragement to try safer strategies. He declines most adaptive equipt. Emphasized to pt and roommate that he needs to follow lumbar precautions until MD allows increased activity. He verbalizes understanding. M7 OT- IP Mobility and Balance Start: 06/22/18 07:57 Freq: Status: Active Protocol: Document 06/22/18 10:08 PJM (Rec: 06/22/18 12:48 PJ [email or web address]) OT-Transfer Assessment Sit to and From Stand Sit to and from Stand Contact Guard Assistance Technique Transfer Destination Chair Devices Transfer Assistive Devices Large Based Quad Cane Comments Mobility Comments Sit to stand requires significant effort from low chair. Pt has his recliner up on 4 blocks at home and has RTS on toilet. OT- Gait Assessment Comments Gait Ability Comments see P.T. report OT- Balance Assessment Sitting Balance and Reactions Static Sitting Balance Ability Good Dynamic Sitting Balance Ability Good Standing Balance and Reactions Static Standing Balance Ability Fair Comments Other Balance Tests/Deviations/Treatment during lower body dressing : M9 OT- IP Assessment and Plan Start: 06/22/18 07:57 Freq: Status: Active Protocol: Document 06/22/18 10:08 PJM (Rec: 06/22/18 12:48 [facility] [email or web address]) OT Summary Assessment and Plan Potential Rehabilitation Potential Good Summary Progress Towards Goals Progressing Toward Goals Assessment Summary Pt presents with better pain control and much more alert today with increased functional mobility noted. He has decreased insight into current lumbar spine precautions and potential safety issues (e.g standing up to don and doff pants rather than sitting) and needs min to mod verbal cues to apply precautions and safe strategies during self care tasks. He declines most adaptive equipt. Roommate works from home and agreeable to assist pt PRN with dressing and bathing. Emphasized to pt and roommate that he needs to follow lumbar precautions until MD allows increased activity. He verbalizes understanding. Pt did agree to shower tomorrow prior to d/c. Goals Grooming Goal Independent Dressing Goal Moderate Assistance Toileting Goal Independent Bathing Goal Standby Assistance Toilet Transfer Goal Independent Shower Transfer Goal Standby Assistance Tub/Shower Combination Shower Chair Patient/Caregiver Education Goal Demonstrate Post-Op Precautions Demonstrate Energy Conservation and Pacing Caregiver Independent Assisting Patient Days to Meet Goals 1 Frequency of Treatment Frequency Of Treatment Once a Day Treatment Plan OT Treatment Plan ADL Training Functional Mobility Patient/Family Education Discharge Planning Discharge Recommendations OT Discharge Recommendations Home with Assistance Home Equipment Needs grab bar by tub
--- NOTE | 2018-06-22 10:29 | PT.IPTN ---
Current Diagnoses Spinal stenosis, lumbar region with neurogenic claudication (06/20/18) Strain of muscle, fascia and tendon at neck level, initial encounter (06/20/18) Surgery Performed Operation Date: 06/20/18 11:45 Actual Procedures p L5-S1 Discectomy & Instru. fusion w/bone graft. Revision L4-5 Left Laminectomy - Alex Nagel MD Physical Therapy Treatment Note M2 PT-IP Current Condition Start: 06/21/18 11:41 Freq: NEEDED Status: Active Protocol: Document 06/21/18 10:08 AB (Rec: 06/21/18 11:55 AB [email or web address]) Physical Therapy Current Condition Current Condition Evaluation Date 06/21/18 Treatment Diagnosis s/p L4-5 post/lat fusion, L5S1 TLIF with cage; difficulty in walking Onset Date 06/20/18 Precautions Lumbar Precautions Log Roll No Twisting Limit Bending Lifting Restriction of 10 lbs Gait Belt above Incisional Area M3 PT-IP Subjective Start: 06/21/18 11:41 Freq: NEEDED Status: Active Protocol: Document 06/22/18 10:21 SA (Rec: 06/22/18 10:29 SA [email or web address]) Subjective Physical Therapy Visit Type Type Treatment Note Visit Start Time 09:05 Visit Stop Time 09:37 Total Visit Minutes 32 Number of TOOL GRINDER OPERATOR EXTERNAL Visits 1 Physical Therapy Visit Comments Patient Comments Pt awake with friend/caregiver Maisha present. Agreeable to PT. Therapy Pain Assessment Pain When Pain Assessed During Mobility Pain Present Pain Present Pain Reported Location Lower back Intensity 7 Scale Used Numeric (1 - 10) Pain Behaviors Calling Out Facial Grimacing Pain Management Techniques Modification of Treatment Re-positioning Timing of Activity with Medications M4 PT-IP Mobility and Gait Start: 06/21/18 11:41 Freq: NEEDED Status: Active Protocol: Document 06/22/18 10:21 SA (Rec: 06/22/18 10:29 SA [email or web address]) PT-Bed Mobility Assessment Rolling Type of Rolling Log Rolling Roll to Left Level of Assist Standby Assistance Supine to Sit Supine to Sit Standby Assistance Sit to Supine Sit to Supine Standby Assistance Scooting Scooting to Edge of Bed Standby Assistance PT-Transfer Assessment Sit to and From Stand Sit to and from Stand Contact Guard Assistance Equipment Transfer Assistive Device Gait Belt Front Wheeled Walker Orthotic/Prosthetic Devices or Brace: No Transfers Transfer Destination Bed Chair Wheelchair Transfer Technique Stand Step Pivot Transfer Ability Level of Assist Contact Guard Assistance Comments Mobility Comments Pt very pain focused and presents with significant guarding during mobility. SBA with bed mobility and CGA with transfers and FWW. VCs for upright posture and spinal precautions. Gait Assessment Gait Gait Assistance Required: Contact Guard Assist Distance (Feet) 100 Able to Maintain Weight Bearing Status Yes During Gait Assistive Devices Assistive Device Gait Belt Front Wheeled Walker Orthotic/Prosthetic Devices or Brace: No Gait Deviations General Gait Pattern Antalgic Decreased Stride Length Factors Limiting Gait Function Factors Limiting Gait Function Decreased Activity Tolerance Decreased Sensation Decreased Strength Limited Range of Motion Pain Poor Balance Poor Safety Awareness Comments Gait Comments Pt more alert this AM. ADjusted FWW for better fit, CGA with ambulation and VCs for decreasing UE WBing and increased step length. Stair Climbing Assessment Evaluation Level of Assist On Stairs Contact Guard Assistance Devices Stair Climbing Assistive Devices Left Railing Right Railing Technique/Endurance Stair Climbing Direction Ascend and Descend Stair Climbing Technique Step to Step Number of Steps Climbed 3 Query Text: Stair Climbing Set # Repetitions (reps) 1 Comments Stair Climbing Comments PT WBs heavily through UEs on B rails with step to gait pattern leads up with LLE and down with RLE. CGA and caregiver training completed with Maisha who feels comfortable managing pt on stairs in/out of home. PT-Balance Assessment Comments Other Balance Tests/Deviations/Treatment Pt maintained balance well : with standing urination at toilet. M5 PT-IP Objective Assessments Start: 06/21/18 11:41 Freq: NEEDED Status: Active Protocol: Document 06/21/18 10:08 AB (Rec: 06/21/18 11:55 AB [email or web address]) Orientation Orientation/Cognition Level of Alertness Alert Orientation Name Age Birthday Month Date Year Day of Week Place Situation Gross Range of Motion Lower Extremity ROM Assessment Within Functional Limits Strength Lower Extremity Strength Assessment Bilaterally Impaired Comments Strength Comments RLE: 3+/5 LLE: 4-/5 Coordination Assessment Gross Coordination Gross Coordination WNL Sensation Assessment Sensation Gross Sensation Right LE Impaired Sensation Description Numbness Comments Sensation Comments c/o numbness on R 1st and 2nd toes. Muscle Tone Muscle Tone WNL Yes M6 PT-IP Treatment Start: 06/21/18 11:41 Freq: NEEDED Status: Active Protocol: Document 06/22/18 10:21 SA (Rec: 06/22/18 10:29 [email or web address]) Physical Therapy Treatment Exercises Exercises Ankle Pumps Gluteal Sets Education Education Provided Precautions Post-Op Packet Safety Other Treatments Other Treatment Performed Caregiver training with Maisha for mobility in home, stairs and equipment needs. M7 PT-IP Assessment and Plan Start: 06/21/18 11:41 Freq: NEEDED Status: Active Protocol: Document 06/22/18 10:21 (Rec: 06/22/18 10:29 [email or web address]) PT Summary Assessment and Plan Goals Bed Mobility Goal Independent Transfer Goal Standby Assistance Front Wheeled Walker Gait Goal Standby Assistance Front Wheel Walker Gait Distance 150 Other Goals up/down 4 steps with R rails ascending + 2 steps withour rails using SPC/FWW SBA Frequency of Treatment Frequency Of Treatment Twice a Day Recommendations To Nursing Amount of Assist Needed 1 Person Assist Discharge Recommendations PT Discharge Recommendations Home with Assistance
[2018-06-22 11:55] VITALS: BP 124/86; PULSE 77; RESP 18; TEMP 36.6; O2SAT 95
--- NOTE | 2018-06-22 13:36 | PC.NURSE ---
Pt off the HOSPITAL RECEIVING CLERK pump per Pt request at 0900 this AM. Taking in PO pain meds w/good relief of back/surgical pain.
[2018-06-22] MEDS: hydrOXYzine pamoate 25 MG CAPSULE PO (15:42)
[2018-06-22 16:15] VITALS: BP 125/89; PULSE 66; RESP 18; TEMP 36.7; O2SAT 92
--- NOTE | 2018-06-22 16:15 | PT.IPTN ---
Current Diagnoses Spinal stenosis, lumbar region with neurogenic claudication (06/20/18) Strain of muscle, fascia and tendon at neck level, initial encounter (06/20/18) Surgery Performed Operation Date: 06/20/18 11:45 Actual Procedures p L5-S1 Discectomy & Instru. fusion w/bone graft. Revision L4-5 Left Laminectomy - Alex Nagel MD Physical Therapy Treatment Note M2 PT-IP Current Condition Start: 06/21/18 11:41 Freq: NEEDED Status: Active Protocol: Document 06/21/18 10:08 AB (Rec: 06/21/18 11:55 AB [email or web address]) Physical Therapy Current Condition Current Condition Evaluation Date 06/21/18 Treatment Diagnosis s/p L4-5 post/lat fusion, L5S1 TLIF with cage; difficulty in walking Onset Date 06/20/18 Precautions Lumbar Precautions Log Roll No Twisting Limit Bending Lifting Restriction of 10 lbs Gait Belt above Incisional Area M3 PT-IP Subjective Start: 06/21/18 11:41 Freq: NEEDED Status: Active Protocol: Document 06/22/18 16:03 SA (Rec: 06/22/18 16:15 SA [id number]) Subjective Physical Therapy Visit Type Type Treatment Note Visit Start Time 14:30 Visit Stop Time 14:50 Number of PRODUCTION CREW SUPERVISOR Visits 2 Physical Therapy Visit Comments Patient Comments Pt agreeable to PT this afternoon. Patient Goals To go home with friend/ caregiver. Therapy Pain Assessment Pain When Pain Assessed During Mobility Pain Present Pain Present Pain Reported Location Lower back Intensity 6 Scale Used Numeric (1 - 10) Pain Behaviors Calling Out Facial Grimacing Pain Management Techniques Modification of Treatment Re-positioning Timing of Activity with Medications M4 PT-IP Mobility and Gait Start: 06/21/18 11:41 Freq: NEEDED Status: Active Protocol: Document 06/22/18 16:03 SA (Rec: 06/22/18 16:15 SA [id number]) PT-Bed Mobility Assessment Rolling Type of Rolling Log Rolling Roll to Left Level of Assist Standby Assistance Supine to Sit Supine to Sit Standby Assistance Sit to Supine Sit to Supine Standby Assistance Scooting Scooting to Edge of Bed Standby Assistance Scooting Up and Down in Bed Standby Assistance PT-Transfer Assessment Sit to and From Stand Sit to and from Stand Contact Guard Assistance Equipment Transfer Assistive Device Gait Belt Front Wheeled Walker Orthotic/Prosthetic Devices or Brace: No Transfers Transfer Destination Bed Chair Transfer Technique Stand Step Pivot Transfer Ability Level of Assist Contact Guard Assistance Comments Mobility Comments Pt with slow guarded, movements but SBA for mobility tasks, uses FWW safely, remembers spinal precautions. Gait Assessment Gait Gait Assistance Required: Contact Guard Assist Distance (Feet) 250 Able to Maintain Weight Bearing Status Yes During Gait Assistive Devices Assistive Device Gait Belt Front Wheeled Walker Orthotic/Prosthetic Devices or Brace: No Gait Deviations General Gait Pattern Antalgic Decreased Stride Length Factors Limiting Gait Function Factors Limiting Gait Function Decreased Activity Tolerance Decreased Sensation Decreased Strength Limited Range of Motion Pain Poor Balance Poor Safety Awareness Comments Gait Comments Improving gait speed and distance, pt WBs heavily through UEs and is able to partially correct with cues. Increased pain with posterior lean so pt tends to forward flex through trunk. PT-Balance Assessment Comments Other Balance Tests/Deviations/Treatment Pt manages FWW and tight turns : well in room, moves segmentally to avoid twisting of spine. M5 PT-IP Objective Assessments Start: 06/21/18 11:41 Freq: NEEDED Status: Active Protocol: Document 06/21/18 10:08 AB (Rec: 06/21/18 11:55 AB [email or web address]) Orientation Orientation/Cognition Level of Alertness Alert Orientation Name Age Birthday Month Date Year Day of Week Place Situation Gross Range of Motion Lower Extremity ROM Assessment Within Functional Limits Strength Lower Extremity Strength Assessment Bilaterally Impaired Comments Strength Comments RLE: 3+/5 LLE: 4-/5 Coordination Assessment Gross Coordination Gross Coordination WNL Sensation Assessment Sensation Gross Sensation Right LE Impaired Sensation Description Numbness Comments Sensation Comments c/o numbness on R 1st and 2nd toes. Muscle Tone Muscle Tone WNL Yes M6 PT-IP Treatment Start: 06/21/18 11:41 Freq: NEEDED Status: Active Protocol: Document 06/22/18 16:03 SA (Rec: 06/22/18 16:15 SA [id number]) Physical Therapy Treatment Exercises Exercises Ankle Pumps Gluteal Sets Education Education Provided Precautions Post-Op Packet Safety M7 PT-IP Assessment and Plan Start: 06/21/18 11:41 Freq: NEEDED Status: Active Protocol: Document 06/22/18 16:03 SA (Rec: 06/22/18 16:15 SA [id number]) PT Summary Assessment and Plan Frequency of Treatment Frequency Of Treatment Twice a Day Recommendations To Nursing Amount of Assist Needed 1 Person Assist Discharge Recommendations PT Discharge Recommendations Home with Assistance
[2018-06-22 19:55] VITALS: BP 136/97; PULSE 83; RESP 18; TEMP 37; O2SAT 92
[2018-06-22] MEDS: GABAPENTIN 300 MG CAPSULE PO (20:54)
[2018-06-22] MEDS: SENNOSIDES 8.6 MG TABLET 17.2 MG PO (20:54)
--- NOTE | 2018-06-22 22:03 | CM.MNRNOTE ---
Shift summary: (pain management) Patient receiving Oxycodone for pain during this shift. Patient said I thought my dose of oxycodone was due at 15:30 however primary nurse Yesenia said his next dose due at 16:00. The patient stated I am having the same pain I had before surgery, I thought my pain would improve after surgery but it has not. Primary nurse Yesenia reviewed patient's MAR and noted that patient could receive Vistaril 25mg PO before next Oxycodone dose could be given to help with patients break through pain. Patient said YES I will try Vistaril now. During 21:00 medication administration this student nurse assessed this patients pain and the patient reported their pain of 8/10 is in his lower back and right quad. Student nurse and primary nurse Yesenia asked the patient if he would like to take another Vistaril. Patient stated the last Vistaril I got did not help my pain and NO I do not want another Vistaril because it did not work. This student nurse noticed a change in patient's attitude compared to his attitude from 06/21/18 when the patient was more inviting and open to this student nurses care. Today, 06/22/18, this student nurse found patient to be less inviting with this student nurses interactions. Safety: bed is low and locked, call light within reach
[2018-06-23 00:15] VITALS: BP 140/93; PULSE 71; RESP 16; TEMP 36.8; O2SAT 90
[2018-06-23] MEDS: OXYCODONE IR 5 MG TABLET 20 MG PO (00:35)
[2018-06-23 05:49] VITALS: BP 133/99; PULSE 63; RESP 16; TEMP 36.2; O2SAT 96
[2018-06-23] MEDS: OXYCODONE IR 10 MG TABLET 20 MG PO (08:02)
[2018-06-23 08:15] VITALS: BP 144/102; PULSE 61; RESP 18; TEMP 36.6; O2SAT 93
[2018-06-23] MEDS: CELECOXIB 200 MG CAPSULE PO (09:29)
[2018-06-23] MEDS: DOCUSATE 100 MG CAPSULE PO (09:29)
--- NOTE | 2018-06-23 10:12 | PT.IPTN ---
Current Diagnoses Spinal stenosis, lumbar region with neurogenic claudication (06/20/18) Strain of muscle, fascia and tendon at neck level, initial encounter (06/20/18) Surgery Performed Operation Date: 06/20/18 11:45 Actual Procedures p L5-S1 Discectomy & Instru. fusion w/bone graft. Revision L4-5 Left Laminectomy - Alex Nagel MD Physical Therapy Treatment Note M2 PT-IP Current Condition Start: 06/21/18 11:41 Freq: NEEDED Status: Active Protocol: Document 06/21/18 10:08 AB (Rec: 06/21/18 11:55 AB [email or web address]) Physical Therapy Current Condition Current Condition Evaluation Date 06/21/18 Treatment Diagnosis s/p L4-5 post/lat fusion, L5S1 TLIF with cage; difficulty in walking Onset Date 06/20/18 Precautions Lumbar Precautions Log Roll No Twisting Limit Bending Lifting Restriction of 10 lbs Gait Belt above Incisional Area M3 PT-IP Subjective Start: 06/21/18 11:41 Freq: NEEDED Status: Active Protocol: Document 06/23/18 10:03 SA (Rec: 06/23/18 10:12 SA [id number]) Subjective Physical Therapy Visit Type Type Treatment Note Visit Start Time 09:29 Visit Stop Time 09:53 Total Visit Minutes 24 Number of STAPLE CUTTER Visits 3 Physical Therapy Visit Comments Patient Comments Pt in bed, agreeable to PT this AM. States his R low back /leg pain is localized to R buttock. Patient Goals To go home with friend/ caregiver. Therapy Pain Assessment Pain When Pain Assessed During Mobility Pain Present Pain Present Pain Reported Location Lower back Intensity 6 Scale Used Numeric (1 - 10) Pain Behaviors Calling Out Facial Grimacing Pain Management Techniques Re-positioning Timing of Activity with Medications M4 PT-IP Mobility and Gait Start: 06/21/18 11:41 Freq: NEEDED Status: Active Protocol: Document 06/23/18 10:03 SA (Rec: 06/23/18 10:12 SA [id number]) PT-Bed Mobility Assessment Rolling Type of Rolling Log Rolling Roll to Left Level of Assist Standby Assistance Supine to Sit Supine to Sit Standby Assistance Sit to Supine Sit to Supine Standby Assistance Scooting Scooting to Edge of Bed Standby Assistance Scooting Up and Down in Bed Standby Assistance PT-Transfer Assessment Sit to and From Stand Sit to and from Stand Standby Assistance Equipment Transfer Assistive Device Gait Belt Front Wheeled Walker Orthotic/Prosthetic Devices or Brace: No Transfers Transfer Destination Bed Wheelchair Transfer Technique Stand Step Pivot Transfer Ability Level of Assist Standby Assistance Comments Mobility Comments Pt able to log roll OOB with safe technique and no VCs. Stand pivot txs with FWW and SBA, pt aware of precautions. Gait Assessment Gait Gait Assistance Required: Contact Guard Assist Distance (Feet) 225 Able to Maintain Weight Bearing Status Yes During Gait Assistive Devices Assistive Device Gait Belt Front Wheeled Walker Orthotic/Prosthetic Devices or Brace: No Gait Deviations General Gait Pattern Antalgic Decreased Stride Length Factors Limiting Gait Function Factors Limiting Gait Function Decreased Activity Tolerance Decreased Sensation Decreased Strength Limited Range of Motion Pain Poor Balance Poor Safety Awareness Comments Gait Comments Pt slowly decreasing WBing through UEs with gait and able to correct posture partially without symptoms. Stair Climbing Assessment Evaluation Level of Assist On Stairs Contact Guard Assistance Devices Stair Climbing Assistive Devices Left Railing Right Railing Technique/Endurance Stair Climbing Direction Ascend and Descend Stair Climbing Technique Step to Step Number of Steps Climbed 3 Query Text: Stair Climbing Set # Repetitions (reps) 2 Comments Stair Climbing Comments Decreasing reliance on B rails but pt still leans on rails at times, improved tolerance and management of stairs today . M5 PT-IP Objective Assessments Start: 06/21/18 11:41 Freq: NEEDED Status: Active Protocol: Document 06/21/18 10:08 AB (Rec: 06/21/18 11:55 AB [email or web address]) Orientation Orientation/Cognition Level of Alertness Alert Orientation Name Age Birthday Month Date Year Day of Week Place Situation Gross Range of Motion Lower Extremity ROM Assessment Within Functional Limits Strength Lower Extremity Strength Assessment Bilaterally Impaired Comments Strength Comments RLE: 3+/5 LLE: 4-/5 Coordination Assessment Gross Coordination Gross Coordination WNL Sensation Assessment Sensation Gross Sensation Right LE Impaired Sensation Description Numbness Comments Sensation Comments c/o numbness on R 1st and 2nd toes. Muscle Tone Muscle Tone WNL Yes M6 PT-IP Treatment Start: 06/21/18 11:41 Freq: NEEDED Status: Active Protocol: Document 06/23/18 10:03 SA (Rec: 06/23/18 10:12 SA [id number]) Physical Therapy Treatment Exercises Exercises Ankle Pumps Gluteal Sets Education Education Provided Precautions Post-Op Packet Safety M7 PT-IP Assessment and Plan Start: 06/21/18 11:41 Freq: NEEDED Status: Active Protocol: Document 06/23/18 10:03 SA (Rec: 06/23/18 10:12 SA [id number]) PT Summary Assessment and Plan Frequency of Treatment Frequency Of Treatment Twice a Day Recommendations To Nursing Amount of Assist Needed 1 Person Assist Discharge Recommendations PT Discharge Recommendations Home with Assistance Equipment Needed for Home Before Pt has FWW, elevated toilet Discharge seat and shower chair.
--- NOTE | 2018-06-23 10:34 | PM.DS.1 ---
History of Present Illness Date Patient Seen: 06/23/18 Time Patient Seen: 10:35 Chief complaint: [id number] L5-S1 & L4-5 Narrative: Hospital day 4, postop day 3 following L4-5 posterior fusion and L5-S1 TLIF with cage and posterior screws by Dr. Nagel. Patient remained stable postoperatively. Has advanced with physical therapy. PT feels that patient is stable for discharge home. Patient desired to go home today. He does have an appointment with his pain clinic on the morning of 06/27/2018. He needs enough of his oxycodone to last until that appointment. Discharge Providers Date of admission: 06/20/18 09:34 Primary care physician: Marino Tracey MD Consults: 06/20/18 17:33 Consult to Occupational Therapy Evaluate & Treat Comment: Physician Instructions: Evaluate and treat Consult to Physical Therapy Evaluate & Treat Comment: Physician Instructions: Evaluate and Treat Discharge provider: Fadi Schmidt PA-C Discharge Date: 06/23/18 Summary Discharge Diagnosis: Status post L4-5 posterior fusion and L5-S1 TLIF, cage and posterior instrumentation Hospital Course: Patient brought to hospital on 06/20/2018 for above noted surgery. He remained stable postoperatively. Mainly had a pain control issue. He advanced well with physical therapy. Ready for discharge home on postop day 3. Status at Discharge Cognitive/behavioral status at discharge: Alert oriented no acute distress. Functional status at discharge: independent ambulation Overall status at discharge: patient is progressing back to baseline Time Spent with Patient Less than 30 minutes Exam Vital Signs (past 8 hours): - 06/23/18 05:49 06/23/18 08:15 Temperature 97.2 F L 97.9 F Pulse Rate 63 61 Respiratory Rate 16 18 Blood Pressure 133/99 H 144/102 H Pulse Oximetry 96 93 Fraction of Inspired Oxygen 21 Oxygen Delivery Method Nasal Cannula Oxygen Flow Rate 2 Narrative Exam Narrative: Back. CovRsite dressing to lumbar area is dry without drainage or inflammation. Legs. No calf pain or swelling. Pulses symmetrical. Good sensation to touch to lower legs. Objective Labs Result Diagrams: 06/21/18 05:05 Discharge Plan Discharge Plan Patient Disposition: Home Discharge Med Rec/Prescriptions Prescriptions: New celecoxib [Celebrex] 200 mg Capsule 200 mg PO BID Qty: 10 RF: 0 oxycodone 10 mg Tablet 20 mg PO Q3HR PRN (Reason: Pain, Severe (7-10)) Qty: 40 RF: 0 Continued buprenorphine-naloxone [Suboxone] 8-2 mg Film 3 film BUCCAL SEEINSTR RF: 0 Follow up/Referrals: Marino Tracey MD [Primary Care Provider] - Provider Discharge Instructions Diet: Diet as Tolerated Activity: Ambulate as tolerated. Avoid excessive bending or twisting of lumbar spine. No lifting or carrying more than 5-10 lb. Other treatments: Patient will be seen at his Pain Clinic on 06/27/2018 and will be transition to Suboxone. Skin/Wound/Dressing Care Report to your healthcare provider any signs of infection, such as:: chills, fever, night sweats, increased pain, unusual drainage and unusual redness Discharge Data Primary Care Provider: Marino Tracey Attending Provider: Alex Nagel Admit Date/Time: 06/20/18 09:34 Quality VTE Deep Vein Thrombosis/Pulmonary Embolism Present on Admission: No
--- NOTE | 2018-06-23 10:38 | P.DS_ITS ---
History of Present Illness Date Patient Seen: 06/23/18 Time Patient Seen: 10:35 Chief complaint: [id number] L5-S1 & L4-5 Narrative: Hospital day 4, postop day 3 following L4-5 posterior fusion and L5- S1 TLIF with cage and posterior screws by Dr. Nagel. Patient remained stable postoperatively. Has advanced with physical therapy. PT feels that patient is stable for discharge home. Patient desired to go home today. He does have an appointment with his pain clinic on the morning of 06/27/2018. He needs enough of his oxycodone to last until that appointment. Discharge Providers Date of admission: 06/20/18 09:34 Primary care physician: Mairno Tracey MD Consults: 06/20/18 17:33 Consult to Occupational Therapy Evaluate & Treat Comment: Physician Instructions: Evaluate and treat Consult to Physical Therapy Evaluate & Treat Comment: Physician Instructions: Evaluate and Treat Discharge provider: Fadi Schmidt PA-C Discharge Date: 06/23/18 Summary Discharge Diagnosis: Status post L4-5 posterior fusion and L5-S1 TLIF, cage and posterior instrumentation Hospital Course: Patient brought to hospital on 06/20/2018 for above noted surgery. He remained stable postoperatively. Mainly had a pain control issue. He advanced well with physical therapy. Ready for discharge home on postop day 3. Status at Discharge Cognitive/behavioral status at discharge: Alert oriented no acute distress. Functional status at discharge: independent ambulation Overall status at discharge: patient is progressing back to baseline Time Spent with Patient Less than 30 minutes Exam Vital Signs (past 8 hours): - 06/23/18 05:49 06/23/18 08:15 Temperature 97.2 F L 97.9 F Pulse Rate 63 61 Respiratory Rate 16 18 Blood Pressure 133/99 H 144/102 H Pulse Oximetry 96 93 Fraction of Inspired Oxygen 21 Oxygen Delivery Method Nasal Cannula Oxygen Flow Rate 2 Narrative Exam Narrative: Back. CovRsite dressing to lumbar area is dry without drainage or inflammation. Legs. No calf pain or swelling. Pulses symmetrical. Good sensation to touch to lower legs. Objective Labs Result Diagrams: 06/21/18 05:05 Discharge Plan Discharge Plan Patient Disposition: Home Discharge Med Rec/Prescriptions Prescriptions: New celecoxib [Celebrex] 200 mg Capsule 200 mg PO BID Qty: 10 RF: 0 oxycodone 10 mg Tablet 20 mg PO Q3HR PRN (Reason: Pain, Severe (7-10)) Qty: 40 RF: 0 Continued buprenorphine-naloxone [Suboxone] 8-2 mg Film 3 film BUCCAL SEEINSTR RF: 0 Follow up/Referrals: Marino Tracey MD [Primary Care Provider] - Provider Discharge Instructions Diet: Diet as Tolerated Activity: Ambulate as tolerated. Avoid excessive bending or twisting of lumbar spine. No lifting or carrying more than 5-10 lb. Other treatments: Patient will be seen at his Pain Clinic on 06/27/2018 and will be transition to Suboxone. Skin/Wound/Dressing Care Report to your healthcare provider any signs of infection, such as:: chills, fever, night sweats, increased pain, unusual drainage and unusual redness Discharge Data Primary Care Provider: Marino Tracey Attending Provider: Alex Nagel Admit Date/Time: 06/20/18 09:34 Quality VTE Deep Vein Thrombosis/Pulmonary Embolism Present on Admission: No
--- NOTE | 2018-06-23 10:43 | OT.IP.TRT ---
Current Diagnoses Spinal stenosis, lumbar region with neurogenic claudication (06/20/18) Strain of muscle, fascia and tendon at neck level, initial encounter (06/20/18) Surgery Performed Operation Date: 06/20/18 11:45 Actual Procedures p L5-S1 Discectomy & Instru. fusion w/bone graft. Revision L4-5 Left Laminectomy - Alex Nagel MD Occupational Therapy Treatment Note M2 OT-IP Current Condition Start: 06/22/18 07:57 Freq: Status: Active Protocol: Document 06/21/18 11:50 PJM (Rec: 06/22/18 08:13 PJM [id number]) Occupational Therapy Current Condition Current Condition Evaluation Date 06/21/18 Treatment Diagnosis decr'd self care,mobility s/sp L5-S1 diskectomy/fusion w/ revision L4-5 lami Diagnosis Onset Date 06/20/18 Post Operative Precautions Lumbar Precautions Log Roll No Twisting Limit Bending Lifting Restriction of 10 lbs Gait Belt above Incisional Area M3 OT- IP Subjective and Pain Start: 06/22/18 07:57 Freq: Status: Active Protocol: Document 06/23/18 10:32 [facility] (Rec: 06/23/18 10:43 [facility] [id number]) OT- Subjective Occupational Therapy Visit Type Type Treatment Note Visit Start Time 08:45 Visit Stop Time 09:15 Total Visit Minutes 30 Occupational Therapy Visit Comments Patient Comments Pt agreeable to shower. OT Pain Assessment Pain When Pain Assessed At Rest Pain Present Pain Present Denied Pain M4 OT- IP ADL's Start: 06/22/18 07:57 Freq: Status: Active Protocol: Document 06/23/18 10:32 [facility] (Rec: 06/23/18 10:43 [facility] [email or web address]) OT ADL-Grooming General Evaluation Grooming Ability Standby Assistance Areas Needing Assistance Retrieving/Set-up of Grooming Items OT ADL-Dressing General Eval Upper Body Dressing Ability Independent Lower Body Dressing Ability Minimal Assistance Comments OT Dressing Comments Pt will need assist for socks as refuses any AED. Pt states roommate to assist at home. OT ADL-Toileting General Evaluation Toileting Ability Standby Assistance Comments OT Toileting Comments Pt able to stand with FWW turned around for support to stand while urinating. Pt supervision mainly for safety of not to twist and bend while flushing the toilet and turning FWW. OT ADL-Bathing Bathing Type Bathing Type Shower General Evaluation Bathing Ability Minimal Assistance Areas Needing Assistance Wash/Dry Back Devices Bathing Equipment Hand Held Shower Sprayer Shower Chair without Arms Grab Bars Comments OT Bathing Comments Pt able to do quick rinse for showering, needing assist to wash/dry back. Noted redness/ blisters for edge of dressing, nursing notified. M5 OT- IP IADL's Start: 06/22/18 07:57 Freq: Status: Active Protocol: Document 06/21/18 11:50 [facility] (Rec: 06/22/18 08:13 PJM [id number]) OT-Instrumental Activities of Daily Living Deficits IADL Deficits Identified Deficits Home Safety Awareness Awareness of Need for Assistance at Home Good Awareness Ability to Problem Solve Emergency Able to Problem Solve Situations Medication Management Medication Management Comments Pt has hx of recent IV drug use per chart notes. Money Management Money Management No Deficits Identified Meal Preparation Meal Preparation Caregiver Provides Assist Meal Preparation Comments Roommate to assist until pt able Insole And Heel Stiffener Insole And Heel Stiffener Caregiver Provides Assist Insole And Heel Stiffener Comments Roommate to assist until pt able Driving Driving Caregiver Provides Assist Driving Comments Roommate to assist until pt able M6 OT- IP Functional Cognition Start: 06/22/18 07:57 Freq: Status: Active Protocol: Document 06/23/18 10:32 [facility] (Rec: 06/23/18 10:43 [facility] [id number]) Cognitive Factors Limiting Selfcare Function Cognitive Ability Level of Alertness Alert Patient Orientation Name Age Birthday Month Date Year Day of Week Place Situation Attention Span Ability Capable of Focused Attention Capable of Sustained Attention Ability to Follow Commands Able to Follow Multi-Step Commands Memory Description No Deficits Noted Safety Awareness Decreased Ability to Apply Precautions Underestimates Need for Assistance Cognitive Comments Cognitive Assessment Comments Pt a bit impulsive and needing cues to incorporate back precautions during needs. Safety cues to push up from the surface versus push up from FWW to stand. M7 OT- IP Mobility and Balance Start: 06/22/18 07:57 Freq: Status: Active Protocol: Document 06/23/18 10:32 [facility] (Rec: 06/23/18 10:43 [facility] [email or web address]) OT- Bed Mobility Assessment Rolling Type of Rolling Roll to Left Supine to Sit Supine to Sit Assist Independent Bedrails OT-Transfer Assessment Sit to and From Stand Sit to and from Stand Standby Assistance Technique Transfer Destination Bed Shower Stall Devices Transfer Assistive Devices Gait Belt Front Wheeled Walker Comments Mobility Comments SBA OT- Balance Assessment Sitting Balance and Reactions Static Sitting Balance Ability Normal Dynamic Sitting Balance Ability Good Standing Balance and Reactions Static Standing Balance Ability Good Dynamic Standing Balance Ability Good M8 OT- IP Objective Assessments Start: 06/22/18 07:57 Freq: Status: Active Protocol: Document 06/21/18 11:50 [facility] (Rec: 06/22/18 08:13 PJM [id number]) OT Gross Range of Motion Upper Extremity Range of Motion Assessment Within Functional Limits OT Strength Upper Extremity Strength Assessment Within Functional Limits OT- Coordination Assessment Comments Coordination Comments BUE WNL OT-Muscle Tone Assessment Muscle Tone WNL Yes OT Sensation Assessment Comments Summary Comments Pt denies deficits in BUE's Edema Edema Absent M9 OT- IP Assessment and Plan Start: 06/22/18 07:57 Freq: Status: Active Protocol: Document 06/23/18 10:32 [facility] (Rec: 06/23/18 10:43 [facility] [email or web address]) OT Summary Assessment and Plan Potential Rehabilitation Potential Good Analytic Complexity at Evaluation Low Summary Progress Towards Goals Progressing Toward Goals Assessment Summary Pt discharging home today. Roomate to assist. Discharge Recommendations OT Discharge Recommendations Home with Assistance
== END 2018-06-23 11:10 | disposition home or self-care (01) | DRG 304 ==
PROVIDERS: Admitting Provider Orthopaedic Surgery; PCP Family Medicine; Visit Provider Orthopaedic Surgery
PROC: 0SG30AJ Fusion of Lumbosacral Joint with Interbody Fusion Device, Posterior Approach, Anterior Column, Open Approach (ICD-10-PCS; principal; 2018-06-20 11:45)
DX: M51.16 Intervertebral disc disorders with radiculopathy, lumbar region (principal); M48.061 Spinal stenosis, lumbar region without neurogenic claudication; S33.5XXD Sprain of ligaments of lumbar spine, subsequent encounter; B18.2 Chronic viral hepatitis C; F17.210 Nicotine dependence, cigarettes, uncomplicated
CPT/HCPCS: 72100; 76000; 85014; 85018; 94760; 94762; 97116; 97162; 97165; 97530; 97535; C1776; C9290; J0330; J0690; J2060; J2250; J2405; J2704; J3010; J3410

== ENCOUNTER → 2020-03-24 13:28 | Outpatient (CLI) | payer OTHER, MEDICAID, SELFPAY ==
[2018-06-20 19:12] VITALS: BMI 25.0
[2020-03-24 14:51] LABS: COVID19 -Nasal RAPID Negative (Negative)
== END ==
PROVIDERS: PCP Family Medicine; Visit Provider Physician Assistant
DX: Z11.59 Encounter for screening for other viral diseases (principal)
CPT/HCPCS: 87635; C9803

== ENCOUNTER → 2020-03-26 09:59 | Outpatient (CLI) | payer OTHER, MEDICAID, SELFPAY ==
[2018-06-20 19:12] VITALS: BMI 25.0
--- NOTE | 2020-03-26 | DI.RAD.S_ITS ---
PROCEDURE: FL GUIDED PICC PLACEMENT INDICATIONS: PICC PLACEMENT FOR SURGERY COMPARISON: None. FINDINGS: Left-sided PICC catheter tip resides at the cavoatrial junction. IMPRESSION: Tip of PICC projects to the area of the cavoatrial junction. Dictated by: Milad Vidales M.D. on 03/26/2020 at 11:07 Approved by: Milad Vidales M.D. on 03/26/2020 at 11:08
== END ==
PROVIDERS: PCP Family Medicine; Referring Provider Orthopaedic Surgery; Visit Provider Orthopaedic Surgery
DX: Z45.2 Encounter for adjustment and management of vascular access device (principal)
CPT/HCPCS: 36573

== ENCOUNTER 2020-03-27 10:43 | Inpatient (IN) | payer OTHER, MEDICAID, SELFPAY ==
[2018-06-20 19:12] VITALS: BMI 25.0
[2020-03-18 08:41] VITALS: BMI 25.0
[2020-03-27] VITALS (24 sets, daily range): BP systolic 145–190; BP diastolic 34–134; PULSE 62–81; RESP 10–20; TEMP 35.9–37.4; O2SAT 92–98; BMI 25.0; BMI 26.2
--- NOTE | 2020-03-27 | DI.RAD.S_ITS ---
PROCEDURE: XR CERVICAL SPINE 2V OR 3V INDICATIONS: C3-4, 4-5, 5-6 .....ACDF..... TECHNIQUE: Fluoroscopic images were obtained during an operative procedure and submitted for interpretation following the completion of the procedure. COMPARISON: [facility], , MR CERVICAL SPINE WITHOUT CONTRAST, 12/31/2019, 18:03. [facility], CR, XR CERVICAL SPINE WITH OBLIQUES, 01/29/2020, 13:42. FINDINGS: These fluoroscopic images were performed for intraoperative localization. On these images, anteriorly placed fixation devices can be seen at C3-C4, C4-C5, and C5-C6. Please correlate with intraoperative findings. IMPRESSION: Normal intraoperative examination. Dictated by: Ronni Espinoza M.D. on 03/27/2020 at 14:21 Approved by: Ronni Espinoza M.D. on 03/27/2020 at 14:23
[2020-03-27] MEDS: LACTATED RINGERS 1,000 ML 42 ML IV (11:00)
--- NOTE | 2020-03-27 11:33 | PM.PREOP ---
Pre-operative Note COVID-19 COVID-19 status: Negative Result date/Date tested (Pos, Neg/Pending): 03/24/20 Interval Note History & Physical reviewed/Exam performed by Physician: Yes Changes to H&P: No
[2020-03-27] MEDS: METOPROLOL IR 50 MG TABLET PO (11:54)
[2020-03-27] MEDS: CEFAZOLIN 2 GM/100 ML FROZ.PIGGY IV ×2 (12:17→19:38)
--- NOTE | 2020-03-27 12:55 | SUR.OPER ---
Supine, head on gel donut. Arms padded with gel pads, tucked at sides, towel roll under shoulders. Safety belt at thigh. Legs uncrossed.
[2020-03-27] MEDS: BUPIVACAINE 0.25% W/ EPI (PF) 10 ML VIAL 20 ML INJ (13:11)
[2020-03-27] MEDS: SODIUM CHLORIDE 0.9% 1,000 ML, GENTAMICIN 80 MG IRR (13:12)
[2020-03-27] MEDS: THROMBIN (RECOMBINANT) 5,000 UNIT VIAL 5000 UNIT TOP (13:13)
--- NOTE | 2020-03-27 14:14 | PM.OP.1 ---
Operative Date/Time/Diagnoses Date of procedure: 03/27/20 Time of procedure: 14:14 Pre-op diagnosis: Cervical stenosis with radiculopathy Post-op diagnosis: same Procedure & Clinicians Procedure: C3-4, C4-5, C5-6 ACDF with cages Iliac crest bone graft aspirate Use of microscope Same procedure as scheduled: Yes Indications: [age] year old male with intractable pain from stenosis. They had failed conservative management and requested operative intervention. Risks and benefits of surgery were discussed and appropriate consents were obtained. Surgeon: Alex Nagel Catheter Finisher And Inspector: Dorys Rojo Anesthesia Type: General Operative Notes Findings: None Closure Type: primary Specimen(s): none sent Prosthetic devices, grafts, tissues, transplants, or devices: Blessing CLAUDINE-C Applied: catheter Estimated Blood Loss (mL): 10 Procedure in detail: Patient was brought to the operating room and intubated on the table. A time-out was performed. Preoperative antibiotics were given. The neck was prepped and draped in the standard sterile fashion. Using a skin fold, we made a 3 cm oblique incision on the left side. We used Bovie to go through the platysma and then did a standard anterolateral blunt dissection down to the precervical fascia. Fascia was nicked and elevated up. A marker was placed and x-ray was taken for localization. We then subperiosteally elevated up the longus colli muscles. Self-retaining retractors were placed. Charlotte pins were placed. We then brought in the microscope. A scalpel used to perform an annulotomy. We then used a combination of pituitaries and curettes and Kerrison to perform a complete anterior diskectomy at C3-4. We used the bur to take down the posterior osteophytes. We took down the PLL and used Kerrison to remove any posterior disc material and osteophytes. At the end we could from the nerve hook cephalad caudally and out the foramen and everything was opened. A small stab incision was made over the left anterior iliac crest. A Jamshidi needle was advanced into the pelvis and 2 mL of bone marrow was aspirated. We then used the trials. We then packed a 14 x 17 x 6 mm CLAUDINE-C cage with Primagen bone graft and the iliac crest harvest. The cage was placed under fluoroscopic guidance for the anterior fusion at C3-4. We then placed our two locking plates. We then moved down to C4-5. An annulotomy was performed. A complete diskectomy was performed with pituitaries and curettes and Kerrisons. We used the bur to decorticate the endplate as well as take down the posterior osteophytes. We removed the PLL and removed the remaining posterior osteophytes and disc material until everything was widely decompressed in the central canal as well as the neural foramen. We could use the nerve hook to confirm decompression. We then trialed and placed another 14 x 17 x 6 mm cage and packed this with bone graft. This was placed at C4-5 under fluoroscopic guidance and the plates were placed. We then moved down to the C5-6 level. Again an annulotomy and diskectomy was performed. Again the bur was used to decorticate the endplates as well as take down the posterior osteophytes. The disc at this level was much more calcified and took more time to decompress but finally we had the entire posterior component removed. Decompression was confirmed with the nerve hook. We trialed and placed another 14 x 17 x 6 mm cage packed with bone graft and placed at C5-6 for the ACDF at this level. We placed the plates. X-ray confirmed positioning. The wound was irrigated. The self-retaining retractors and Charlotte pins were removed and final x-rays taken. The wound was irrigated. There was no bleeding. The carotid was beating nicely. The platysma was closed. The superficial was closed. The skin was closed. A sterile dressing was placed. They were then extubated and brought to recovery room with no complications. Complications: none Post-operative Condition: stable Disposition: PACU Plan for aftercare: Inpatient. Up with PT.
[2020-03-27] MEDS: HYDRALAZINE 20 MG/ML VIAL ×2 (14:32→14:35)
[2020-03-27] MEDS: HYDROMORPHONE 2 MG INJ IV ×4 (14:38→15:16)
[2020-03-27] MEDS: LORazepam 2 MG/ML INJ 0.25 MG IV (14:39)
[2020-03-27] MEDS: LABETALOL 20 MG/4 ML SYRINGE 10 MG IV ×5 (14:43→15:56)
[2020-03-27] MEDS: fentaNYL 100 MCG/2 ML INJ IV ×2 (14:46→14:51)
[2020-03-27] MEDS: OXYCODONE/ACETAMINOPHEN 5/325 TABLET 1 TAB PO (15:16)
[2020-03-27] MEDS: OXYCODONE IR 10 MG TABLET PO (16:05)
[2020-03-27] MEDS: LABETALOL 20 MG/4 ML SYRINGE IV (16:06)
--- NOTE | 2020-03-27 17:39 | P.CONS_ITS ---
History of Present Illness Consult details Date Patient Seen: 03/27/20 Chief complaint: Cerv fusion Reason for consult: Postoperative Hypertension Requesting provider: Alex Nagel Narrative: Solomon Bradford is a 59-year-old male with a past medical history significant for hypertension, untreated Hepatitis C, JAYDA not on CPAP, depression, anxiety and cervical stenosis with radiculopathy who presented for elective anterior cervical discectomy with fusion and cages of C3-C6. Medicine team was consulted for postoperative hypertension. Patient has had elevated blood pressures ranging from SBP 150s to 180s and DBP 100 to 120s. His current blood pressure is 148/88. He did not take his metoprolol today due to concern for N/V with taking pills on an empty stomach. Received metoprolol succinate 50 mg in PACU and will plan to start losartan 50 mg daily with first dose now. He endorses pain across top of shoulder blades bilaterally and will continue to optimize pain control. He denies headache, lightheadedness or dizziness, chest pain, shortness of breath, abdominal pain, nausea, vomiting, fever, chills, dysuria, diarrhea or constipation. Continue postoperative management per primary team. Meds Home Medications and Allergies Home Medications Medication Instructions Recorded Confirmed Type bupropion HCl [Wellbutrin XL] 150 mg PO QAM 03/18/20 03/27/20 History metoprolol succinate [Toprol XL] 50 mg PO DAILY 03/18/20 03/27/20 History paroxetine HCl [Paxil] 10 mg PO DAILY 03/18/20 03/27/20 History Allergies Allergy/AdvReac Type Severity Reaction Status Date / Time No Known Drug Allergies Allergy Verified 06/15/18 14:02 Review of Systems Review of Systems Narrative: A 10 system comprehensive review of systems was conducted with the patient and found to be negative except as above in the History of Present Illness. Exam Vital Signs (past 8 hours): - 03/27/20 14:29 03/27/20 14:32 03/27/20 14:39 Temperature 97.9 F Pulse Rate 62 65 63 Respiratory Rate 13 14 Blood Pressure 186/34 H 186/134 H 190/134 H Pulse Oximetry 96 95 03/27/20 14:46 03/27/20 14:50 03/27/20 14:56 Temperature Pulse Rate 72 75 73 Respiratory Rate 12 14 Blood Pressure 168/113 H 175/119 H 158/114 H Pulse Oximetry 95 95 03/27/20 15:03 03/27/20 15:09 03/27/20 15:14 Temperature Pulse Rate 79 78 75 Respiratory Rate 13 14 12 Blood Pressure 166/107 H 165/118 H 164/115 H Pulse Oximetry 93 93 94 03/27/20 15:28 03/27/20 15:35 03/27/20 15:43 Temperature Pulse Rate 77 74 77 Respiratory Rate 12 17 10 L Blood Pressure 158/120 H 167/120 H 156/108 H Pulse Oximetry 96 95 93 03/27/20 15:56 03/27/20 16:12 03/27/20 16:18 Temperature 97.8 F Pulse Rate 76 76 71 Respiratory Rate 12 13 Blood Pressure 164/114 H 145/101 H 146/95 H Pulse Oximetry 92 92 03/27/20 16:35 03/27/20 17:00 03/27/20 17:40 Temperature 96.7 F L 96.9 F L Pulse Rate 74 75 75 Respiratory Rate 20 18 20 Blood Pressure 153/110 H 163/112 H 153/113 H Pulse Oximetry 97 96 03/27/20 18:39 03/27/20 18:55 03/27/20 19:40 Temperature 97.8 F Pulse Rate 81 75 Respiratory Rate 18 20 Blood Pressure 148/88 H 148/88 H 174/92 H Pulse Oximetry 94 94 Oxygen Delivery Method Room Air Oxygen Flow Rate 0 Narrative Exam Narrative: General: Middle aged male sitting in bed and in no acute distress, well- developed, well-nourished, appropriately interactive. HEENT: Normocephalic, atraumatic. External ears without defect. Pupils equal, round, and reactive to light. Anicteric sclerae, moist conjunctivae, and no lid lag. Oropharynx free of erythema and cobble stoning with moist mucosa. Cervical collar in place. Neck: Supple with full range of motion. No lymphadenopathy or thyromegaly. Cardiovascular: Regular rate and rhythm without murmurs, rubs, or gallops appreciated. Pulmonary: Clear to auscultation bilaterally without crackles, wheezes, or rhonchi. Normal respiratory effort with no use of accessory muscles. Abdomen: Soft, bpwel sounds present, nontender, nondistended. No hepatosplenome kiana or masses appreciated. Extremities: No clubbing, cyanosis, or edema. Skin: Normal temperature, turgor, and texture; no rash, ulcers, or subcutaneous nodules appreciated. Neurological: Cranial nerves grossly intact. Psychiatric: Normal mood and affect. Alert and oriented to person, place, and time. Assessment & Plan Assessment & Plan narrative: Solomon Bradford is a 59-year-old male with a past medical history significant for hypertension, untreated Hepatitis C, JAYDA not on CPAP, depression, anxiety and cervical stenosis with radiculopathy who presented for elective anterior cervical discectomy with fusion and cages of C3-C6. Medicine team was consulted for postoperative hypertension. Assessment: Post-operative Hypertension Plan: Patient has had elevated blood pressures ranging from SBP 150s to 180s and DBP 100 to 120s postoperatively. His current blood pressure is 148/88. He did not take his metoprolol today due to concern for N/V with taking pills on an empty stomach. Received metoprolol succinate 50 mg in PACU and will plan to start losartan 50 mg daily with first dose now. Ordered labetalol 10 mg every 4 hours as needed for SBP > 180 mmHg or DBP > 110 mmHg with HR > 60 bpm. If additional blood pressure control is needed could consider increasing metoprolol or losartan or starting amlodipine 5-10 mg daily. Continue to optimize pain control. Ordered CPAP per RT protocol for untreated JAYDA (as untreated JAYDA will make hypertension more difficult to treat) to use while napping or sleeping. Thank you for this most interesting consult.
[2020-03-27] MEDS: CELECOXIB 200 MG CAPSULE 400 MG PO (17:58)
[2020-03-27] MEDS: hydrOXYzine pamoate 25 MG CAPSULE PO (17:58)
[2020-03-27] MEDS: LACTATED RINGERS 1,000 ML 125 ML IV (17:58)
[2020-03-27] MEDS: OXYCODONE IR 5 MG TABLET 10 MG PO ×2 (19:38→22:13)
[2020-03-27] MEDS: diazePAM 5 MG TABLET PO (20:22)
[2020-03-27] MEDS: SENNOSIDES 8.6 MG TABLET 17.2 MG PO (20:22)
[2020-03-27] MEDS: DOCUSATE 100 MG CAPSULE PO (20:22)
[2020-03-27] MEDS: GABAPENTIN 300 MG CAPSULE PO (20:22)
[2020-03-27] MEDS: LOSARTAN 50 MG TABLET PO (22:13)
[2020-03-27] MEDS: HYDROMORPHONE 0.5 MG INJ IV (23:57)
--- NOTE | 2020-03-28 00:14 | PC.NURSE ---
0000 Patient OOB in room with bed alarm sounding and call light activated. Patient states he had to go to the bathroom and couldn't wait for staff. Patient returned to bed. Scant amount of shadow drainage to anterior neck dressing. Patient had soft collar off. States he has it off and on. Patient C/O pain 8/10 at anterior anterior neck. Dilaudid 0.5mg given IVP per EMAR. This RN reported to primary RN encounter, meds given and patient steady on feet.
[2020-03-28 00:39] VITALS: BP 128/98; PULSE 77; RESP 16; TEMP 36.5; O2SAT 95
[2020-03-28] MEDS: OXYCODONE IR 5 MG TABLET 10 MG PO ×3 (03:11→11:21)
[2020-03-28] MEDS: diazePAM 5 MG TABLET PO ×2 (03:15→08:14)
[2020-03-28] MEDS: LACTATED RINGERS 1,000 ML 75 ML IV (03:33)
[2020-03-28] MEDS: CEFAZOLIN 2 GM/100 ML FROZ.PIGGY IV (03:34)
[2020-03-28 04:23] VITALS: BP 134/99; PULSE 56; RESP 20; TEMP 36.7; O2SAT 93
[2020-03-28] MEDS: HYDROMORPHONE 0.5 MG INJ IV (06:13)
[2020-03-28 06:37] LABS: Add Manual Diff / Slide Review NO; Basophils Absolute Auto 100 /uL (0-100); Basophils Percent Auto 0.4 % (0-2); Eosinophils Absolute Auto 0 /uL (0-450); Eosinophils Percent Auto 0.1 % (2-4); Hematocrit 43.8 % (41-53); Hemoglobin 14.3 g/dL (13.5-17.5); Lymphocytes Absolute Auto 1700 /uL (1100-4500); Lymphocytes Percent Auto 9.2 % (25-40); Mean Corpuscular HGB Conc 32.7 % (30-36); Mean Corpuscular Volume 91.6 fL (80-100); Monocytes Absolute Auto 1400 /uL (0-900); Monocytes Percent Auto 7.7 % (3-14); Neutrophils Absolute Auto 15000 /uL (1500-7000); Neutrophils Percent Auto 82.6 % (50-75); Platelet Count 163 X10^3/uL (150-400); Red Blood Cell Count 4.79 X10^6/uL (4.5-5.9); Red Cell Distribution Width 13.9 % (11.6-14.8); White Blood Cell Count 18.1 X10^3/uL (4.5-11.0)
[2020-03-28 06:53] LABS: Alanine Aminotransferase 19 IU/L (<50); Albumin Globulin Ratio 1.2 (1.0-2.8); Alkaline Phosphatase 62 U/L (38-126); Aspartate Aminotransferase 36 IU/L (17-59); BUN Creatinine Ratio 20.3 (6-22); Bilirubin Total 0.6 mg/dL (0.2-1.3); Blood Urea Nitrogen 16 mg/dL (9-20); Calcium 8.7 mg/dL (8.4-10.2); Carbon Dioxide 28 mmol/L (22-32); Chloride 108 mmol/L (98-107); Estimated Glomerular Filt Rate > 60.0 mL/min (>60); Globulin 3.3 g/dL (1.7-4.1); Glucose 104 mg/dL (70-100); HEMOLYSIS 32 (0-50); Magnesium 1.8 mg/dL (1.6-2.3); Potassium 4.2 mmol/L (3.4-5.1); Sodium 138 mmol/L (137-145); Total Protein 7.3 g/dL (6.3-8.2)
--- NOTE | 2020-03-28 07:27 | PM.PNPO.1 ---
Subjective Subjective Date Patient Seen: 03/28/20 Time Patient Seen: 07:27 Interval history: He is doing well. Pain is manageable with the oxycodone and Valium. Much easier than recovering after his lumbar surgery. His right arm and shoulder feels great. No difficulty swallowing. Exam Vital Signs (past 8 hours): - 03/27/20 23:57 03/28/20 00:39 03/28/20 04:23 Temperature 99.4 F 97.7 F 98.0 F Pulse Rate 77 56 L Respiratory Rate 16 20 Blood Pressure 128/98 H 134/99 H Pulse Oximetry 95 93 Oxygen Delivery Method Nasal Cannula Oxygen Flow Rate 0 Const Orientation: alert and oriented x3 Back/Spine/Pelvis Other: CDI. 5/5 motor both upper extremities. Objective Labs Result Diagrams: 03/28/20 06:25 03/28/20 06:25 Labs: Laboratory Results - last 24 hr 03/28/20 06:25 Sodium 138 Potassium 4.2 Chloride 108 H Carbon Dioxide 28 BUN 16 Creatinine 0.79 Estimated GFR > 60.0 BUN/Creatinine Ratio 20.3 Glucose 104 H Calcium 8.7 Magnesium 1.8 Total Bilirubin 0.6 AST 36 ALT 19 Alkaline Phosphatase 62 Total Protein 7.3 Albumin 4.0 Globulin 3.3 Albumin/Globulin Ratio 1.2 Assessment & Plan Post-op Postoperative Procedures: Procedures Operation Date: 03/27/20 12:15 Actual Procedures Side Surgeon p C3-6 anterior cervical discectomy & fusion w. left illiac crest bone graft Alex Nagel MD He is doing well. Discharge home today. Quality VTE Deep Vein Thrombosis/Pulmonary Embolism Present on Admission: No
--- NOTE | 2020-03-28 07:30 | PC.NURSE ---
declines offer of incentive spirometry.
[2020-03-28] MEDS: PARoxetine 20 MG TABLET 10 MG PO (08:14)
[2020-03-28] MEDS: DOCUSATE 100 MG CAPSULE PO (08:14)
[2020-03-28 08:15] VITALS: BP 164/112; PULSE 69
[2020-03-28] MEDS: METOPROLOL ER 50 MG TABLET PO (08:15)
[2020-03-28] MEDS: CELECOXIB 200 MG CAPSULE PO (08:16)
[2020-03-28] MEDS: buPROPion XL 150 MG TAB PO (08:16)
[2020-03-28] MEDS: LOSARTAN 50 MG TABLET PO (08:16)
[2020-03-28 08:40] VITALS: BP 163/99; PULSE 70; RESP 18; TEMP 36.5; O2SAT 95
--- NOTE | 2020-03-28 09:05 | OT.IP.EVAL ---
Current Diagnoses Spinal stenosis, cervical region (03/27/20) Surgery Performed Operation Date: 03/27/20 12:15 Actual Procedures p C3-6 anterior cervical discectomy & fusion w. left illiac crest bone graft - Alex Nagel MD Past Medical History (Last Reviewed 03/27/20 @ 21:27 by Nadine Harris DO) Hepatitis C (~2002) HTN (hypertension) Palpitations Substance abuse Surgical History (Last Reviewed 03/27/20 @ 21:27 by Nadine Harris DO) History of lumbar fusion (~2014) History of lumbar spinal fusion (06/20/18) History of repair of anterior cruciate ligament of right knee History of vasectomy (~04/2014) Hx of knee surgery Hx of tonsillectomy S/P surgery on nasal septum [place] teeth removed Occupational Therapy Inpatient Evaluation/Re-Eval M1 PT/OT-IP Prior Functional Status Start: 03/28/20 14:09 Freq: NEEDED Status: Active Protocol: Document 03/28/20 14:09 CGR (Rec: 03/28/20 14:22 CGR [id number]) Medical Review Prior Functional Status Medical History Reviewed Yes Communication Pt is an effective verbal communicator. Mobility and Gait Pt was IND in all functional mobility without AD. Activities of Daily Living and IADL's Pt was IND in all ADLs without AD Social History Household Members none Living Arrangements House Number of Floors (Floors) One Floor Number of Stairs To Enter/Railing? 5 steps to enter with B wide railings. Home Environment Standard Height Toilet,Tub/ Shower Home Equipment Front Wheel Walker,Straight Cane,Raised Toilet Seat w/ Armrests,Shower Seat without Backrest,Hand Held Shower, Band Cutting Machine Operator,Grab Bars Near Toilet Employment Status Unemployed Additional Social History Comment Pt is disabled at this time. M2 OT-IP Current Condition Start: 03/28/20 14:09 Freq: Status: Active Protocol: Document 03/28/20 14:09 CGR (Rec: 03/28/20 14:22 CGR [id number]) Occupational Therapy Current Condition Current Condition Evaluation Date 03/28/20 Treatment Diagnosis C3-6 ACDF Diagnosis Onset Date 03/27/20 Post Operative Precautions Cervical Spine Precautions Soft Collar for Comfort,No Heavy Lifting,Log Roll M3 OT- IP Subjective and Pain Start: 03/28/20 14:09 Freq: Status: Active Protocol: Document 03/28/20 14:09 CGR (Rec: 03/28/20 14:22 CGR [id number]) OT- Subjective Occupational Therapy Visit Type Type Initial Evaluation Visit Start Time 08:46 Visit Stop Time 09:05 Total Visit Minutes 19 Notes P.T. entered at end of OT session. Occupational Therapy Visit Comments Patient Comments My neck hurts but I can do everything on my own. OT Pain Assessment Pain When Pain Assessed At Rest Pain Present Pain Present Pain Reported Location neck Intensity 8 Scale Used Numeric (0 - 10) Management Techniques Distraction,Modification of Treatment,Re-positioning M4 OT- IP ADL's Start: 03/28/20 14:09 Freq: Status: Active Protocol: Document 03/28/20 14:09 CGR (Rec: 03/28/20 14:22 CGR [id number]) OT [id number] Comments OT Self-Feeding Comments Not meal time OT ADL-Grooming General Evaluation Grooming Ability Independent OT ADL-Oral Care General Eval Oral Care Ability Independent OT ADL-Dressing General Eval Upper Body Dressing Ability Independent Lower Body Dressing Ability Independent OT ADL-Toileting General Evaluation Toileting Ability Independent OT ADL-Bathing Comments OT Bathing Comments Not performed M5 OT- IP IADL's Start: 03/28/20 14:09 Freq: Status: Active Protocol: Document 03/28/20 14:09 CGR (Rec: 03/28/20 14:22 CGR [id number]) OT-Instrumental Activities of Daily Living Deficits IADL Deficits Identified No Deficits Home Safety Awareness Awareness of Need for Assistance at Home Good Awareness Ability to Problem Solve Emergency Able to Problem Solve Situations Medication Management Medication Management No Deficits Identified Money Management Money Management No Deficits Identified Meal Preparation Meal Preparation No Deficits Identified Restaurant Supervisor Restaurant Supervisor No Deficits Identified Driving Driving Comments Pt understands that he should not drive til cleared by his MD M6 OT- IP Functional Cognition Start: 03/28/20 14:09 Freq: Status: Active Protocol: Document 03/28/20 14:09 CGR (Rec: 03/28/20 14:22 CGR [id number]) Cognitive Factors Limiting Selfcare Function Cognitive Ability Level of Alertness Alert Patient Orientation Name,Age,Birthday,Month,Date, Year,Day of Week,Place, Situation Attention Span Ability Capable of Focused Attention, Capable of Sustained Attention Ability to Follow Commands Able to Follow Multi-Step Commands OT- Vision and Hearing OT- Hearing Assessment OT- Hearing Assessment WFL OT- Vision Assessment Visual Acuity WFL,Glasses For Reading Visual Attentiveness WFL Occular Pursuits WFL Visual Convergence WFL M7 OT- IP Mobility and Balance Start: 03/28/20 14:09 Freq: Status: Active Protocol: Document 03/28/20 14:09 CGR (Rec: 03/28/20 14:22 CGR [id number]) OT- Bed Mobility Assessment Rolling Type of Rolling Log Rolling,Roll to Left Level of Assistance Independent Supine to Sit Supine to Sit Assist Independent Scooting Scooting to Edge of Bed Independent OT-Transfer Assessment Sit to and From Stand Sit to and from Stand Independent Transfers Transfer Ability Independent Technique Transfer Destination Bed,Chair,Toilet Transfer Technique Stand Step Pivot Devices Transfer Assistive Devices Gait Belt OT- Gait Assessment Gait Gait Assistance Required: Independent Comments Gait Ability Comments Mobility around the room. OT- Balance Assessment Sitting Balance and Reactions Static Sitting Balance Ability Normal Dynamic Sitting Balance Ability Normal Standing Balance and Reactions Static Standing Balance Ability Normal Dynamic Standing Balance Ability Normal M8 OT- IP Objective Assessments Start: 03/28/20 14:09 Freq: Status: Active Protocol: Document 03/28/20 14:09 CGR (Rec: 03/28/20 14:22 CGR [id number]) OT Gross Range of Motion Upper Extremity Range of Motion Assessment Within Functional Limits OT Strength Upper Extremity Strength Assessment Within Functional Limits Comments Strength Comments shlds tested lighlty arms and hands 4+/5 OT- Coordination Assessment Upper Extremity Finger to Nose Test Within Functional Limits Finger Tapping Test Within Functional Limits OT-Muscle Tone Assessment Muscle Tone WNL Yes OT Sensation Assessment Edema Edema Absent M9 OT- IP Assessment and Plan Start: 03/28/20 14:09 Freq: Status: Active Protocol: Document 03/28/20 14:09 CGR (Rec: 03/28/20 14:22 CGR [id number]) OT Summary Assessment and Plan Potential Rehabilitation Potential Excellent Analytic Complexity at Evaluation Low Summary OT Impairments Pain Progress Towards Goals Safe For Discharge Assessment Summary Pt presents as a low compleixty evalution s/p admit for C3-6 ACDF. Pt presents at or close to his baseline, no further OT services. Frequency of Treatment Frequency Of Treatment Discharge Discharge Recommendations OT Discharge Recommendations Home Transportation Needs at Discharge Private Vehicle
--- NOTE | 2020-03-28 11:59 | PC.NURSE ---
Addendum entered by Avani Romero R.N. 03/28/20 12:05: Losartan medication on discharge med list, transmission read rejected, TARAH Hassan called and left message of this. RN Coordinator Lin called prescription in to [facility] in [place]. Pt aware of this. Original Note: Day Shift- Pt stated his pain was 6-8/10 to incisional area and posterior neck. PRN Oxycodone given at 0815 and 1120 prior to discharge home. PRN Valium given at 0815 for muscle spams to neck. Pt ambulating in room indep with steady gait. Soft collar in place intermittently per pt preference. Pt did fall asleep and was lying on left side, pillow under head. Upon awakening, pt stated he should probably not sleep on his side. Encouraged using soft cervical collar when sleeping as a reminder and for comfort. Left anterior neck dressing of gauze and tegaderm intact with approx 60% of dry sero-sang drainage shadowing. Discharge summary packet reviewed with pt, not limited to S/S of infection, pain management, preventing constipation, bathing, dressing change, F/U with Dr. Nagel and with PCP for blood pressure management. Pt states he has a blood pressure machine at home to keep track of his blood pressures. Pt states having all his belongings upon discharge. Extra dressing supplies given to pt to change dressing per Dr. Chapman order on discharge summary packet. Pt left unit in no distress at 1149 via wheelchair with aviation technical systems specialist escort.
--- NOTE | 2020-03-28 14:36 | CM.IDA ---
Initial DCP Assessment Note Pt is a 59 yo male, resident of [place], now POD#1 from Cerv fusion w/ Dr Nagel PCP: Marino Tracey Payer: Tao/FARIDA Reviewed chart, pt discussed in multidisciplinary rounds this morning. Therapy has cleared pt for return home w/family to assist and pt has planned for home, DC order from Ortho has already been initiated this morning. No needs identified from DC planning team . KP Hernandes
--- NOTE | 2020-03-28 14:44 | PT.IIE ---
Current Diagnoses Spinal stenosis, cervical region (03/27/20) Surgery Performed Operation Date: 03/27/20 12:15 Actual Procedures p C3-6 anterior cervical discectomy & fusion w. left illiac crest bone graft - Alex Nagel MD Surgical History (Last Reviewed 03/27/20 @ 21:27 by Nadine Harris DO) History of lumbar fusion (~2014) History of lumbar spinal fusion (06/20/18) History of repair of anterior cruciate ligament of right knee History of vasectomy (~04/2014) Hx of knee surgery Hx of tonsillectomy S/P surgery on nasal septum [place] teeth removed Medical History (Last Reviewed 03/27/20 @ 21:27 by Nadine Harris DO) Hepatitis C (~2002) HTN (hypertension) Palpitations Substance abuse Physical Therapy Inpatient Evaluation/Re-Eval M1 PT/OT-IP Prior Functional Status Start: 03/28/20 14:09 Freq: NEEDED Status: Active Protocol: Document 03/28/20 14:09 CGR (Rec: 03/28/20 14:22 CGR [id number]) Medical Review Prior Functional Status Medical History Reviewed Yes Communication Pt is an effective verbal communicator. Mobility and Gait Pt was IND in all functional mobility without AD. Activities of Daily Living and IADL's Pt was IND in all ADLs without AD Social History Household Members none Living Arrangements House Number of Floors (Floors) One Floor Number of Stairs To Enter/Railing? 5 steps to enter with B wide railings. Home Environment Standard Height Toilet,Tub/ Shower Home Equipment Front Wheel Walker,Straight Cane,Raised Toilet Seat w/ Armrests,Shower Seat without Backrest,Hand Held Shower, Recycling Collections Driver,Grab Bars Near Toilet Employment Status Unemployed Additional Social History Comment Pt is disabled at this time. M2 PT-IP Current Condition Start: 03/28/20 08:22 Freq: NEEDED Status: Discharge Protocol: Document 03/28/20 11:55 DE (Rec: 03/28/20 12:24 DE [id number]) Physical Therapy Current Condition Current Condition Evaluation Date 03/28/20 Treatment Diagnosis C3-6 ACDF; Difficulty with walking Onset Date 03/27/20 Precautions Cervical Spine Precautions Soft Collar for Comfort,Rigid Collar,No Heavy Lifting,Log Roll M3 PT-IP Subjective Start: 03/28/20 08:22 Freq: NEEDED Status: Discharge Protocol: Document 03/28/20 11:55 DE (Rec: 03/28/20 12:24 DE [id number]) Subjective Physical Therapy Visit Type Type Initial Evaluation Visit Start Time 09:03 Visit Stop Time 09:18 Total Visit Minutes 15 Notes SPT Jai led session under direct supervision of PT Sherman throughout the entire session. Number of PLATE GRAINER APPRENTICE Visits 0 Physical Therapy Visit Comments Patient Comments Pt is agreeable to do PT. M4 PT-IP Mobility and Gait Start: 03/28/20 08:22 Freq: NEEDED Status: Discharge Protocol: Document 03/28/20 11:55 DE (Rec: 03/28/20 12:24 DE [id number]) PT-Transfer Assessment Sit to and From Stand Sit to and from Stand Standby Assistance,Use of Upper Extremities Equipment Transfer Assistive Device None,Gait Belt Orthotic/Prosthetic Devices or Brace: No Transfers Transfer Destination Chair Transfer Technique Stand Step Pivot Transfer Ability Level of Assist Standby Assistance Comments Mobility Comments Pt was sitting in chair finishing up session with OT as PT and SPT arrived. OT left the room. Pt completed sit to stand from chair x2 with SBA and use of BUE. The first time , pt demonstrated some unsteadiness and asymmetry and used bed to stand up. Pt was instructed to sit down and try sit to stand again without using the bed. The second time , pt was able to stand up much better with just using B armrests and demonstrated steadiness. Pt was very impulsive and was instructed to slow down and follow my instructions. Pt amb ~200 ft out in the hallway, to the stairs, and back to the room with SBA. Pt did not have any major gait deviations but noted discomfort in the neck during amb. Pt performed 3 steps up and down x2 CGA with R rail ascending. Pt demonstrated step-over pattern without any deviations or LOB . Pt returned to the room and sat down on the chair SBA. Call light placed within reach . Gait Assessment Gait Gait Assistance Required: Standby Assistance Distance (Feet) 200 Assistive Devices Assistive Device None,Gait Belt Orthotic/Prosthetic Devices or Brace: No Comments Gait Comments See mobility comments. Stair Climbing Assessment Evaluation Level of Assist On Stairs Contact Guard Assistance Devices Stair Climbing Assistive Devices None,Right Railing Technique/Endurance Stair Climbing Direction Ascend and Descend Stair Climbing Technique Step Over Step Number of Steps Climbed 3 Query Text: Stair Climbing Set # Repetitions (reps) 2 Comments Stair Climbing Comments See mobility comments. PT-Balance Assessment Sitting Balance and Reactions Static Sitting Balance Ability Normal Dynamic Sitting Balance Ability Normal Standing Balance and Reactions Static Standing Balance Ability Normal Dynamic Standing Balance Ability Good M5 PT-IP Objective Assessments Start: 03/28/20 08:22 Freq: NEEDED Status: Discharge Protocol: Document 03/28/20 11:55 DE (Rec: 03/28/20 12:24 DE [id number]) Orientation Orientation/Cognition Level of Alertness Alert Orientation Name,Age,Birthday,Month,Date, Year,Day of Week,Place, Situation Language Function Ability No Deficits Noted Safety Awareness Decreased Safety Awareness Memory Description No Deficits Noted Comments Pt demonstrated impulsivity. Gross Range of Motion Upper Extremity ROM Assessment Within Functional Limits Lower Extremity ROM Assessment Within Functional Limits Strength Upper Extremity Strength Assessment Within Functional Limits Lower Extremity Strength Assessment Within Functional Limits Coordination Assessment Gross Coordination Gross Coordination WNL Assessment Pronation/Supination Test Normal Performance Foot Tapping Test Normal Performance Heel on Cuellar Test Normal Performance Sensation Assessment Sensation Gross Sensation WNL Light Touch Intact Comments Sensation Comments No numbness or tingling noted in his RUE, which used to bother him before surgery. Muscle Tone Muscle Tone WNL Yes M6 PT-IP Treatment Start: 03/28/20 08:22 Freq: NEEDED Status: Discharge Protocol: Document 03/28/20 11:55 DE (Rec: 03/28/20 12:24 DE [id number]) Physical Therapy Treatment Education Education Provided Safety Other Treatments Other Treatment Performed Pt was educated on safety and role of PT. M7 PT-IP Assessment and Plan Start: 03/28/20 08:22 Freq: NEEDED Status: Discharge Protocol: Document 03/28/20 11:55 DE (Rec: 03/28/20 12:24 DE [id number]) PT Summary Assessment and Plan Potential Rehabilitation Potential Excellent Status of Condition at Evaluation Stable Summary Impairments Balance,Activity Tolerance Progress Towards Goals Safe For Discharge Assessment Summary Solomon is a 59 yo male s/p C3 -6 ACDF POD 1. At baseline, pt was IND for all mobility and amb without AD. On evaluation, pt required CGA-SBA for sit to stand, amb, and stair climbing. Pt demonstrated some impulsivity but was steady throughout mobility, amb, and stair climbing. Pt is safe for d/c. PT anticipates pt will d /c home once medically cleared . Frequency of Treatment Frequency Of Treatment Discharge Recommendations To Nursing Amount of Assist Needed Independent Discharge Recommendations PT Discharge Recommendations Home Transportation Needs at Discharge Private Vehicle
== END 2020-03-28 11:49 | disposition home or self-care (01) | DRG 321 ==
PROVIDERS: Internal Medicine; Admitting Provider Orthopaedic Surgery; PCP Family Medicine; Referring Provider Orthopaedic Surgery; Visit Provider Orthopaedic Surgery
PROC: 0RG20A0 Fusion of 2 or more Cervical Vertebral Joints with Interbody Fusion Device, Anterior Approach, Anterior Column, Open Approach (ICD-10-PCS; principal; 2020-03-27 12:15)
DX: M48.02 Spinal stenosis, cervical region (principal); I10 Essential (primary) hypertension; M54.12 Radiculopathy, cervical region; B18.2 Chronic viral hepatitis C; F17.210 Nicotine dependence, cigarettes, uncomplicated; Z45.2 Encounter for adjustment and management of vascular access device; G47.33 Obstructive sleep apnea (adult) (pediatric); F32.9 Major depressive disorder, single episode, unspecified; F41.9 Anxiety disorder, unspecified
CPT/HCPCS: 36573; 36592; 72040; 76000; 80053; 83735; 85025; 94762; 97161; 97165; C1776; J0360; J0690; J1100; J1170; J2060; J2250; J2405; J2704; J3010